=== PATIENT | male | born 1960 | race Caucasian/White ===

== ENCOUNTER 2020-05-05 16:49 | Inpatient (IN) | payer OTHER, SELFPAY ==
[~2020-05-05] VITALS: Ht 167.6 cm; Wt 70.9 kg
[2020-05-05 17:10] VITALS: Ht 167.6 cm; Wt 70.9 kg
--- NOTE | 2020-05-05 17:15 | NUR ---
DR RAMSAY AT THE BEDSIDE FOR MSE TO PT.
--- NOTE | 2020-05-05 17:21 | NUR ---
PT REPORTED HE IS UNABLE TO PRODUCE URINE. DR SOBIA LORENZANA.
--- NOTE | 2020-05-05 17:52 | NUR ---
PT IS FRI- FRI- FRIDAY DIALYSIS. LAST DIALYSIS FRIDAY.
[2020-05-05 17:54] LABS: PLATELET COUNT 197 x10^3mcL (130-400); RED CELL DISTRIBUTION WIDTH 14.3 % (11.5-14.5)
[2020-05-05 17:55] LABS: BASOPHIL % 0 % (0-2)
--- NOTE | 2020-05-05 18:10 | NUR ---
IV STARTED WITH SOME DIFFICULTY. LT UPPER ARM = DISLYSIS SHUNT SITE (GOOD THRILL & BRUIT) LT SIDE WEAK S/P CVA PER PT & HX.
[2020-05-05 19:10] LABS: BILIRUBIN TOTAL 0.7 mg/dL (0.20-1.00); CALCIUM 8.6 mg/dL (8.5-10.1); CARBON DIOXIDE 15.3 mmol/L (21-32)
[2020-05-05 19:11] LABS: ALBUMIN 3.3 g/dL (3.4-5.0)
[2020-05-05 19:13] LABS: POTASSIUM SERUM 5.7 mmol/L (3.5-5.1)
[2020-05-05 19:14] LABS: CREATININE SERUM 17.9 mg/dL (0.7-1.3)
[2020-05-05 19:36] LABS: C REACTIVE PROTEIN 18.3 mg/dL (<=0.9)
[2020-05-05 21:03] LABS: MAGNESIUM 2.9 mg/dL (1.8-2.4); PHOSPHOROUS 8.9 mg/dL (2.5-4.9)
--- NOTE | 2020-05-05 21:13 | NUR ---
RECEIVED PT IN A VEDRY WAKENED STATE. STATES HE HAS TO HAVE A BOWEL MOVEMENT. WHEN OFFERED T[facility] BED PIMENTEL HE REFUSED STATING HE DOULD WALK TO THE BATH ROOM. NOTED A PROTHESIS ON THE LEFT FOOT AND PT SEEMED TO WEAK TO AMBULATE TO THE BATHROOM. CALLED FOR A BEDSIDE COMMODE AND HELP TO GET THE PT UP. PT'S POTASSIUM WAS 5.7, ADMINISTERED D50 IVP AND BLOOD SUGAR PRIOR TO ADMINISTRATION WAS 66. 20 MINUTES LATER BLOOD SUGAR WAS 194 AND 10 UNITS OF HUMILIN WAS GIVEN IVP. PT DID HAVE A FOUL SMELLING LIQUID STOOL BROWN IN COLOR. HE WAS ASSISTED BACK TO BED PER TWO ASSISTANTS, AND DEMONSTRATED INCREASE SOB. DR. MOORE ASSESS THE PT AND WROTE ADMISSION ORDERS. PT ASKED IF HIS WAS STILL HERE BUT WHEN SHE WAS CALLED IN THE WAITING ROOM THERE WAS NO ANSWER.
--- NOTE | 2020-05-05 21:23 | NUR ---
ISABELLE DOCUMENTED UNDER JANELLE AT 0860
[2020-05-05 23:26] VITALS: BP 126/76
--- NOTE | 2020-05-05 23:57 | NUR ---
RECEIVED PATIENT FROM ER VIA GUERNEY, AWAKE/ALERT AND ORIENTED, STATED UNABLE TO SLIDE OVER TO BED, MAX ASSIST. REPOSITION IN BED. PLACE TELE # 15 NSR, HR [address]ED. NO C/O PAIN. LLE HAS BRACE ON. IV TO RW INTACT AND PATENT. ORIENTED TO CALL LIGHT. MRSA/COVID SWAB DONE. UPDATE DONTRELL, PT'S CONDITION AND POC. CARE ENDORSE TO ALLISON JENKINS.
--- NOTE | 2020-05-06 00:38 | NUR ---
REPORT RECEIVED FROM ADMITING NURSE DEAN MOHR RESTING COMFORTABLY IN BED, BREATHING EVEN AND UNLABORED ON 2L NC. NO ACUTE DISTRESS NOTED. SAFETY PRECAUTIONS IN PLACE. CALL LIGHT WITHING REACH. WILL CONT TO MONITOR.
--- NOTE | 2020-05-06 02:06 | NUR ---
0135 PT BS 51, REPEAT AND STILL 59. PT AWAKE AND ALERT, DENIES ANY DIZZINESS. D50 GIVEN PER DEC. 0150 BS RECHECKED, CURRENT BS 170, PT RESTING COMFORTABLY IN BED, NO ACUTE DISTRESS NOTED. WILL CONT TO MONITOR.
--- NOTE | 2020-05-06 02:10 | NUR ---
VANCO CANNOT BE VERIFIED BY OUT SIDE PHARMACY. DR ORDONEZ MADE AWARE, RN RECCOMENDED TO PUT THE ORDER WITH EXACT DOSE, PER DR ORDONEZ WE WILL JUST WAIT UNITL TOMORROW FOR OUR PHARMACY TO VERIFY IT. OKAY NOT TO START MED AT THE SCHEDULE TIME.
--- NOTE | 2020-05-06 05:59 | NUR ---
PT SLEPT AT INTERVALS THROUGHOUT THE NIGHT, BREATHING EVEN AND UNLABORED ON 2L NC. PT HAD HD TODAY WITH 1L OUTPUT. PT TOLERATED WELL. NO ACUTE DISTRESS NOTED. ALL NEEDS ASSESSED AND ATTENDED TO. DR MCNAMARA MADE AWARE OF PT HYPOGLYCEMIC EPISODE. NO ORDERS RECEIVED. PT RESTING COMFORTABLY. SAFETY PRECAUTIONS IN PLACE. CALL LIGHT WITHING REACH. WILL CONT TO MONITOR AND ENDORSE CARE TO AM NURSE.
[2020-05-06 06:04] VITALS: BP 90/78
--- NOTE | 2020-05-06 08:10 | NUR ---
RECEIVED PT FROM PM NURSE. PT IS AWAKE AND RESTING COMFORTABLY IN BED AT THIS TIME. NO FACIAL DISTRESS OR SOB NOTED. PT IS A/OX4. ABLE TO MAKE NEEDS KNOWN. FINE CRACKLES NOTED TO BILATERAL LUNG BEYER. BREATHING E/U ON NC 2L. TELE #15. NSR. DENIES CP/PRESSURE. PULSES EVEN AND PALPABLE. NO EDEMA NOTED. NORMACTIVE BS X4. ABD SOFT AND ROUND. DENIES N/V/D. ANURIC. HD PT. AV SHUNT NOTED TO ANGELIKA. THRILL/BRUIT PRESENT. PT HAS LEFT SIDED WEAKNESS. REQUIRES MAX ASSIST. WHEELCHAIR BASELINE. SKIN INTACT. BRACE NOTED TO LLE. NO C/O PAIN AT THIS TIME. IV TO RW. SL. INTACT. WNL FLUSHES WITH NO DIFFICULTY. BED AT THE LOWEST POSITION. CALL LIGHT WITHIN REACH. DROPLET PRECAUTONS OBSERVED AT ALL TIMES. WILL CONTINUE TO MONITOR.
[2020-05-06 08:55] VITALS: BP 147/70
[2020-05-06 09:46] LABS: PLATELET COUNT 184 x10^3mcL (130-400)
[2020-05-06 09:54] LABS: BASOPHIL % 0 % (0-2); RED CELL DISTRIBUTION WIDTH 14.6 % (11.5-14.5)
[2020-05-06 10:15] LABS: CALCIUM 8.4 mg/dL (8.5-10.1); CARBON DIOXIDE 26.1 mmol/L (21-32); MAGNESIUM 2.2 mg/dL (1.8-2.4); PHOSPHOROUS 5.5 mg/dL (2.5-4.9); POTASSIUM SERUM 3.9 mmol/L (3.5-5.1)
[2020-05-06 10:19] LABS: CREATININE SERUM 11.1 mg/dL (0.7-1.3)
[2020-05-06 10:42] LABS: C REACTIVE PROTEIN 22.4 mg/dL (<=0.9)
[2020-05-06 10:56] LABS: ERYTHROCYTE SED RATE 83 mm/hr (0-20)
[2020-05-06 17:22] VITALS: BP 107/61
--- NOTE | 2020-05-06 18:14 | NUR ---
P.T. NOTES P.T. EVAL COMPLETED; REFER TO EVAL FOR DETAILS; NON AMBULATORY, PERSONAL W/C & L AFO IN ROOM; L SIDED WEAKNESS; TRIAL W/ P.T.; O2 SAT ROOM AIR=80s, 2L=94%
--- NOTE | 2020-05-06 19:34 | NUR ---
ENDORSED CARE TO PM NURSE FOR CONTINUITY OF CARE. ALL QUESTIONS/CONCERNS ANSWERED.
--- NOTE | 2020-05-06 20:20 | NUR ---
RECEIVED PT FROM AM NURSE. PT AAAOX4, ABLE TO FOLLOW COMMANDS AND MAKE NEEDS KNOWN. TELE#15 READING SR, PT DENIES CP/PRESSURE AT THIS TIME. PALPABLE PULSES TO ALL EXTREMETIES. NO EDEMA NOTED. FINE CRACKLES TO BASES, BREATHING EVEN AND UNLABORED ON 4L NC. NO SOB NOTED. O2 SAT 92%. ABD SOFT AND NONDISTENDED, ACTIVE BS X4 QUAD. DENIES N/V, PT STATES HAVING LOOSE STOOLS. PT ON HD M/W/F. LAST HD 05/06N WITH 1L OUT. AV SHUNT TO LUE WITH GOOD THRILL AND BRUIT. LEFT SIDED WEAKNESS, WC BOUND. IV TO RW PATENT AND INTACT. SITE WNL. BED AT LOWEST SETTING. SIDE RAILS X2 UP. CALL LIGHT WITHING REACH. PT PUI CVD, DROPLET PRECAUTIONS IN PLACE. WILL CON TO MONITOR.
[2020-05-06 20:30] VITALS: BP 122/77; BP 96/54
--- NOTE | 2020-05-06 23:54 | NUR ---
PT RESTING COMFORTABLY IN BED, BREATHING EVEN AND UNLABORED ON 4L NC. NO SOB NOTED. PT EASILY AROUSABLE TO VERBALS STIMULI. NO ACUTE DISTRESS NOTED. SAFETY PRECAUTIONS IN PLACE. CALL LIGHT WITHING REACH. WILL CONT TO MONITOR.
--- NOTE | 2020-05-07 04:31 | NUR ---
PT C/O 03/22 ABD PAIN, NO ALLEVIATING FACTORS. MEDICATED WITH PRN NORCO PER DEC. NO ACUTE DISTRESS NOTED. WILL CONT TO MONITOR.
[2020-05-07 06:15] VITALS: BP 122/84
--- NOTE | 2020-05-07 06:16 | NUR ---
PT SLEPT AT INTERVALS THROUGHOUT THE NIGHT, BREATHING EVEN AND UNLABORED ON 4L NC. O2 SAT 95%. NO SIGNIFICANT CHANGE DURING SHIFT. PT CONT HAVING DIARRHEA. ALL NEEDS ASSESSED AND ATTENDED TO. PT RESTING COMFORTABLY. SAFETY PRECAUTIONS IN PLACE. CALL LIGHT WITHING REACH. WILL CONT TO MONITOR AND ENDORSE CARE TO AM NURSE.
[2020-05-07 06:38] LABS: PLATELET COUNT 192 x10^3mcL (130-400)
--- NOTE | 2020-05-07 06:44 | NUR ---
CALLED NURSE BOWERS THREE TIMES TO INFORM HER ABOUT HD ORDER FOR TODAY BUT NO ANSWER. UNABLE TO LEAVE A MESSAGE. CHARGE NURSE MADE AWARE. WILL CALL HER AGAIN.
[2020-05-07 06:47] LABS: CARBON DIOXIDE 26.2 mmol/L (21-32); MAGNESIUM 2.5 mg/dL (1.8-2.4); PHOSPHOROUS 8.7 mg/dL (2.5-4.9); POTASSIUM SERUM 4.6 mmol/L (3.5-5.1)
[2020-05-07 06:48] LABS: CREATININE SERUM 13.5 mg/dL (0.7-1.3)
[2020-05-07 07:14] LABS: BASOPHIL % 0 % (0-2); RED CELL DISTRIBUTION WIDTH 14.7 % (11.5-14.5)
--- NOTE | 2020-05-07 07:30 | NUR ---
PT IS AAOX4 WITH L SIDED WEAKNESS AND L EYE REMOVED. PT CAN TURN AND REPOSITION SELF AND IS PARTIAL WEIGHT BEARING. USES W/C AT BASELINE. TELE [address] READING NSR. IV CATH TO RW FLUSHED, PATENT, SITE WNL. COVERED WITH CDI DRESSING. AV SHUNT TO ANGELIKA, SITE WNL, BRUIT AND THRILL NOTED. ABDOMEN SOFT, NONTENDER, NONDISTENDED. BOWEL SOUNDS HYPERACTIVE X4 QUADS. DENIES N/V, HAS C/O DIARRHEA. LUNG SOUNDS DIMINISHED BILATERALLY. ON O2 N/C AT 4LPM. NO COUGH OR SOB NOTED. DENIES PAIN. CALL LIGHT WITHIN REACH. BED IN LOWEST POSITION. DROPLET PRECAUTIONS MAINTAINED. FALL PROTOCOL MAINTAINED.
[2020-05-07 08:25] VITALS: BP 140/72
--- NOTE | 2020-05-07 08:40 | NUR ---
LAB REPORTED PT IS POSITIVE FOR COVID.
--- NOTE | 2020-05-07 09:42 | NUR ---
STEVO MAYFIELD NP MADE AWARE PT IS POSITIVE COVID.
--- NOTE | 2020-05-07 12:35 | NUR ---
BLOOD SUGAR 248, 6 UNITS REG INSULIN GIVEN PER RISS. 02 N/C IN PLACE. NO RESP DISTRESS NOTED. DENIES PAIN. WILL CONTINUE TO MONITOR.
[2020-05-07 13:01] VITALS: BP 145/73
--- NOTE | 2020-05-07 14:50 | NUR ---
IRLANDA HUTSON INITIATED. RESP EVEN AND UNLABORED. PT TAUGHT HOW TO PLACE HIS N/C IF SHOULD BECOME DISLODGED. PT DEMONSTRATED UNDERSTANDING. PT DENIES PAIN. CALL LIGHT WITHIN REACH.
--- NOTE | 2020-05-07 15:15 | NUR ---
PT RECEIVING HEMODIALYSIS AT THIS TIME.
--- NOTE | 2020-05-07 16:08 | NUR ---
REPORTED TO DR. YEH THAT PT HAS CCHO DIET BUT RENAL DIET NOT ADDED. RECEIVED ORDER TO ADD RENAL DIET. REPORTED THAT PT'S PHOS = 8.6, MAG= 2.5, BUN =100.0 AND HCT = 40. PT RECEIVING DIAYLYSIS AT THIS TIME. NO OTHER ORDERS GIVEN.
[2020-05-07 16:27] VITALS: BP 110/70
--- NOTE | 2020-05-07 16:58 | NUR ---
BLOOD SUGAR 286, 9 UNITS REG INSULIN GIVEN PER RISS. PT STILL RECEIVING HEMODIALYSIS. PT O2 SAT TRENDING BETWEEN 95-100%. TITRATED PT DOWN TO 3LPM. WILL CONTINUE TO MONITOR.
--- NOTE | 2020-05-07 17:06 | NUR ---
REPORTED TO DR. MONTANO THAT PT HAS PERSISTENT DRY COUGH. WOULD COUGH MEDICATION BE INDICATED. DR. MONTANO STATED, "NO, NO COUGH MEDICATION.". PT MADE AWARE.
--- NOTE | 2020-05-07 17:07 | NUR ---
REPORTED TO DR. MONTANO THAT PT HAS PERSISTENT DRY COUGH. WOULD COUGH MEDICATION BE INDICATED. DR. MONTANO STATED, "NO, NO COUGH MEDICATION.". PT MADE AWARE.
[2020-05-07 19:25] VITALS: BP 131/71
--- NOTE | 2020-05-07 19:31 | NUR ---
ENDORSED PT TO URBA JENKINS, ALL QUESTIONS AND CONCERNS ADDRESSED.
--- NOTE | 2020-05-07 19:32 | NUR ---
RECEIVED PT AWAKE ALERT AND VERBALLY RESPONSIVE.BREATHING EASY AND NON-LABORED.O2 @ 5L/MIN VIA N/C.O2 SAT @ 94%.DENIES SOB/DIFFICULTY BREATHING.NO COUGHING/CONGESTION NOTED.DENIES CHESTPAIN.BP 131/71 MMHG,HR 81.ANGELIKA SHUNT WITH GOOD BRUIT/THRILLS.ANURIC.ON DROPLET PRECAUTION FOR COVID+.WILL OBSERVE PROTOCOL.WILL CONTINUE TO MONITOR.
--- NOTE | 2020-05-08 04:36 | NUR ---
PT SLEPT WELL ALL NIGHT.BREATHING EASY AND NON-LABORED,NO COUGHING/CONGESTION NOTED.TOLERATED 02 @ 5L/MIN VIA N/C.NO ASE NOTED FROM ZOSYN AND ZITHROMAX IV ATB.ASSISTED TO BSC NEEDED.BM X2 TO LOOSE STOOL.ALL NEEDS MET.ON DROPLET PRECAUTION FOR COVID+.GOODHANDWASHING TECHNIQUE OBSERVED.WILL CONTINUE TO MONITOR.
[2020-05-08 05:39] VITALS: BP 157/65
[2020-05-08 06:47] LABS: PLATELET COUNT 205 x10^3mcL (130-400); RED CELL DISTRIBUTION WIDTH 14.1 % (11.5-14.5)
--- NOTE | 2020-05-08 07:15 | NUR ---
RECEIVED PT IN BED AWAKE, ALERT, ABLE TO MAKE NEEDS KNOWN. ON DROPLET ISOLATION FOR COVID19. ON 5L VIA NC AT 97%SAT. NO ACUTE RESPIRATORY DISTRESS. ON TELE 15. IV SITE TO RIGHT WRIST SALINE LOCK. DENIES PAIN OR DISCOMFORT AT THIS TIME. BED IN LOWEST POSITION. CALL LIGHT WITHIN REACH. WILL CONTINUE TO MONITOR.
[2020-05-08 07:22] LABS: C REACTIVE PROTEIN 11.7 mg/dL (<=0.9); CALCIUM 8.2 mg/dL (8.5-10.1); CARBON DIOXIDE 25.6 mmol/L (21-32); MAGNESIUM 2.2 mg/dL (1.8-2.4); POTASSIUM SERUM 3.1 mmol/L (3.5-5.1)
[2020-05-08 07:24] LABS: CREATININE SERUM 9.6 mg/dL (0.7-1.3)
[2020-05-08 07:29] LABS: BASOPHIL % 0 % (0-2)
[2020-05-08 08:00] VITALS: BP 137/77
[2020-05-08 12:00] VITALS: BP 150/83
[2020-05-08 16:52] VITALS: BP 127/67
--- NOTE | 2020-05-08 17:00 | NUR ---
PATIENT IV SITE TO RIGHT WRIST NOTED WITH BLOOD LEAKING AROUND THE SITE, NO BLOOD RETURN NOTED. I/V SITE D/C FROM RIGHT WRIST, CATHETER INTACT UPON REMOVAL. COVERED WITH DRY DRESSING AND APPLIED PRESSURE, NO BLEEDING NOTED.
--- NOTE | 2020-05-08 17:40 | NUR ---
ATTEMPTED TO START AN IV LINE X2. UNABLE TO SUCCESSFULY START ONE, RESOURCE NURSE MADE AWARE.
--- NOTE | 2020-05-08 18:59 | NUR ---
PT IN BED AWAKE, ALERT, ABLE TO MAKE NEEDS KNOWN. ON DROPLET ISOLATION FOR COVID19. CONTINUE WITH 5L VIA NC AT 97%SAT. NO ACUTE RESPIRATORY DISTRESS, DENIES SOB. OXYGEN DESAT TO 80'S WHEN REMOVING OXYGEN AND UPON EXERTION. ENCOURAGE TO PRONE AND TO TURN TO SIDE. PATIENT VERBALIZE UNDERSTANDING. ON TELE 15. DENIES PAIN OR DISCOMFORT AT THIS TIME. BED IN LOWEST POSITION. CALL LIGHT WITHIN REACH. WILL ENDORSE CARE TO INCOMING NURSE
--- NOTE | 2020-05-08 20:00 | NUR ---
RECEIVED PT IN BED AWAKE, ALERT,ORIENTED X4. LUNG SOUNDS DIMINISHED. PT IS ON O2 AT 5L VIA N/C. HE HAS NO SOB AT THIS TIME WHILE AT REST. HE IS C/O BACK PAIN 07/22. W/ AV SHUNT TO ANGELIKA. PT HAS NO IV ACCESS AT THIS TIME. WILL TRY TO START IV TONIGHT. CALL LIGHT W/IN REACH.
--- NOTE | 2020-05-08 20:15 | NUR ---
STARTED NEW IV ON THE RT WRIST G 24.
--- NOTE | 2020-05-08 20:22 | NUR ---
PT MEDICATED W/ NORCO 5/325 MG PO FOR C/O BACK PAIN 07/22.
[2020-05-08 21:34] VITALS: BP 107/53
--- NOTE | 2020-05-08 22:30 | NUR ---
INFORMED DR. WOOD REGARDING ACCUCHECK BLOOD SUGAR OF 416/462 (REPEATED) AND THAT INSULIN COVERAGE OF 21 UNITS WAS GIVEN.
--- NOTE | 2020-05-08 23:00 | NUR ---
PT STATED THAT NORCO DID NOT HELP WITH HIS BACK PAIN. INFORMED RESIDENT AND ORDER WAS GIVEN. PT WAS THEN MEDICATED W/ ULTRAM 50 MG PO FOR BACK PAIN 07/22.
--- NOTE | 2020-05-09 01:25 | NUR ---
PT APPEARS TO BE SLEEPING COMFORTABLY AT THIS TIME.
--- NOTE | 2020-05-09 05:19 | NUR ---
PT STILL ASLEEP QUIETLY AT THIS TIME. HE WAS MEDICATED FOR BACK PAIN X2 AND FOR N/V X1. NO EPISODE OF RESP. DISTRESS NOTED. HL TO RT WRIST INTACT. PT SCHEDULED FOR HEMODIALYSIS TODAY. ALL NEEDS ATTENDED TO.
[2020-05-09 06:05] VITALS: BP 136/70
[2020-05-09 08:08] LABS: PLATELET COUNT 217 x10^3mcL (130-400)
[2020-05-09 08:17] LABS: C REACTIVE PROTEIN 7.2 mg/dL (<=0.9); CALCIUM 8.6 mg/dL (8.5-10.1); CARBON DIOXIDE 27.5 mmol/L (21-32); POTASSIUM SERUM 3.8 mmol/L (3.5-5.1)
[2020-05-09 08:23] LABS: CREATININE SERUM 11.8 mg/dL (0.7-1.3)
[2020-05-09 08:28] LABS: BASOPHIL % 0 % (0-2)
[2020-05-09 09:19] VITALS: BP 142/75
--- NOTE | 2020-05-09 10:11 | NUR ---
RECEIVED REPORT FROM COMMANDING OFFICER HOMIC[employer] SQU[employer] RN. PATIENT A&OX4, RESTING IN BED, REMAINS ON NC. CRITICAL LAB VALUE FOR CREATININE AT 11.8 AND BUN AT 96.0, DR. MORGAN AWARE. PLAN FOR HD TODAY. WILL CONTINUE TO MONITOR.
[2020-05-09 13:47] VITALS: BP 124/64
--- NOTE | 2020-05-09 14:16 | NUR ---
P.T. NOTE Pt UNDERGOING DIALYSIS AT THIS TIME. PHYSICAL THERAPY TX ON HOLD FOR NEXT SCHEDULED TX DATE.
--- NOTE | 2020-05-09 14:21 | NUR ---
PATIENT A&OX4, LETHARGIC, FAMILY UPDATED PER PATIENT REQUEST WITH PERMISSION. PATIENT REMAINS ON 5L NC WITH SATS 90-94%. HD COMPLETED. NSR ON THE MONITOR WTIH OCCASIONAL PVCS. WILL CONTINUE TO MONITOR.
--- NOTE | 2020-05-09 17:32 | NUR ---
PATIENT A&OX4, 5L NC WITH SATS BETWEEN 91-95%, NSR WITH OCCASIONAL PVCS ON THE TELE MONITOR. PATIENT IS ANURIC, HD DONE TODAY VIA LEFT ARM AV FISTULA. PATIENT VERY LETHARGIC THIS SHIFT. BM X 1 THIS SHIFT. IV ABX INFUSED PER ORDER. ACCUCHECKS ELEVATED, INSULIN COVERAGE PROVIDED PER SLIDING SCALE ORDER. UPDATED FAMILY ON PATIENT STATUS. PATIENT VERY WEAK REQUIRING TWO PEOPLE TO GET OOB TO BSC. ALL NEEDS AND CONCERNS ADDRESSED. CALL LIGHT AND BEDSIDE TABLE WITHIN REACH. NEEDS ATTENDED.
[2020-05-09 17:59] VITALS: BP 104/60
--- NOTE | 2020-05-09 19:30 | NUR ---
RECEIVED PT IN BED ASLEEP BUT EASILY AROUSABLE. HE IS ORIENTED X4. LUNG SOUNDS DIMINISHED. ON O2 AT 5L N/C. HE HAS NO SOB WHILE AT REST. HE HAS NO C/O PAIN. W/ HL TO RT WRIST INTACT. CALL LIGHT W/IN REACH.
[2020-05-09 21:29] VITALS: BP 117/53
--- NOTE | 2020-05-09 22:25 | NUR ---
PT CALM AND APPEARS TO BE SLEEPING COMFORTABLY. HE IS EASILY AROUSABLE.
--- NOTE | 2020-05-09 23:54 | NUR ---
PT C/O BACK PAIN 05/22. NORCO 5/325 MG PO GIVEN.
--- NOTE | 2020-05-10 02:12 | NUR ---
PT ASLEEP COMFORTABLY AND SATTING 100%.
[2020-05-10 05:46] VITALS: BP 110/52
--- NOTE | 2020-05-10 05:56 | NUR ---
IV TO RT WRIST NOT PATENT. IV REMOVED. STARTED NEW IV ON THE SAME HAND (OTHER SIDE OF RT WRIST) G 22. PT TOLERATED PROCEDURE WELL.
--- NOTE | 2020-05-10 06:03 | NUR ---
PT HAD A QUIET NIGHT. NO EPISODE OF RESP. DISTRESS. HE REMAINS ALERT AND ORIENTED X4. HE WAS MEDICATED FOR BACK PAIN X1. PT REMAINS ON N/C AT 5L O2. ALL NEEDS ATTENDED TO.
[2020-05-10 06:36] LABS: BASOPHIL % 0.3 % (0-2); PLATELET COUNT 206 x10^3mcL (130-400); RED CELL DISTRIBUTION WIDTH 14.5 % (11.5-14.5)
[2020-05-10 06:58] LABS: C REACTIVE PROTEIN 5.1 mg/dL (<=0.9); MAGNESIUM 2.1 mg/dL (1.8-2.4); PHOSPHOROUS 7.5 mg/dL (2.5-4.9); POTASSIUM SERUM 3.8 mmol/L (3.5-5.1)
[2020-05-10 06:59] LABS: CREATININE SERUM 9.4 mg/dL (0.7-1.3)
[2020-05-10 08:39] VITALS: BP 91/55
--- NOTE | 2020-05-10 09:00 | NUR ---
RECEIVED IN NO ACUTE DISTRESS, AWAKE AND ALERT. ON O2 5L N/C SATS 93%. MILD SOB NOTED WITH ACTIVITIES. VS WNL. HL PATENT. CALL LIGHT WITHIN REACH.
[2020-05-10 12:32] VITALS: BP 119/65
--- NOTE | 2020-05-10 14:12 | NUR ---
HEPARIN DRIP STARTED PER ORDER, SRATED AT 800UNITS/HR, PTT BASELINE IS 33.9 AND PTT ORDERED FOR 2200.
--- NOTE | 2020-05-10 16:11 | NUR ---
CALLED DR. RIOS AND VERIFIED ORDER FOR PLASMA. PER DR. RIOS PT NEEDS ONLY TWO UNITS TRANSFUSED. ELIZABETH IN THE LAB MADE AWARE.
[2020-05-10 16:47] VITALS: BP 110/61
--- NOTE | 2020-05-10 19:27 | NUR ---
PT REMAINS IN NO ACUTE DISTRESS, RESTING IN BED. NO C/O PAIN OR DISCOMFORT AT THIS TIME. NO CHANGES IN VS. HEPARIN DRIP INFUSING WELL AND SITE CLEAR. NO ACTIVE BLEEDING NOTED. CALL LIGHT WITHIN REACH. WILL BE ENDORSED TO INCOMING SHIFT.
--- NOTE | 2020-05-10 20:12 | NUR ---
RECIEVED PT FROM PREVIOUS SHIFT NURSE. PT RESTING COMFORTABLY IN BED W/ HOB ELEVATED, EASILY AROUSABLE, AOX4, ABLE TO FOLLOW COMMANDS, DENIES SILVERMAN, N/V, DIZZINESS, OR PAIN, NO FACIAL DROOPING NOTED, AND L EYE PROSTHESIS NOTED AND POOR VISION BILATERALLY, AND CALM AND COOPERATIVE WITH CARE. RR EVEN AND UNLABORED ON 5L/NC, CHEST RISING EQUALLY, DENIES SOB OR DIFFICULTY BREATHING. TELE #15 NSR, CONT PULSE OX O2:98%, DENIES CHEST PAIN OR PRESSURE. IV RW AND RFA WNL, NO ERYTHEMA, EDEMA, OR DRAINAGE NOTED AND HEPARIN RUNNING AT 800UNITS/HR, 8ML/HR. ON RW, PT TOLERATING WELL. AV SHUNT NOTED TO ANGELIKA THRILL AND BRUIT NOTED. PT ON DROPLET/CONTACT ISOLATION FOR COVID-19(+). BED IN LOWEST POSITION, SIDE RAILS UP X2, AND CALL LIGHT WITHIN REACH. WILL CONTINUE TO MONITOR.
--- NOTE | 2020-05-10 20:13 | NUR ---
RECIEVED PT FROM PREVIOUS SHIFT NURSE. PT RESTING COMFORTABLY IN BED W/ HOB ELEVATED, EASILY AROUSABLE, AOX4, ABLE TO FOLLOW COMMANDS, DENIES SILVERMAN, N/V, DIZZINESS, OR PAIN, NO FACIAL DROOPING NOTED, AND L EYE PROSTHESIS NOTED AND POOR VISION BILATERALLY, AND CALM AND COOPERATIVE WITH CARE. RR EVEN AND UNLABORED ON 5L/NC, CHEST RISING EQUALLY, DENIES SOB OR DIFFICULTY BREATHING. TELE #15 NSR, CONT PULSE OX O2:98%, DENIES CHEST PAIN OR PRESSURE. IV RW AND RFA WNL, NO ERYTHEMA, EDEMA, OR DRAINAGE NOTED AND HEPARIN RUNNING AT 800ML/HR ON RW, PT TOLERATING WELL. AV SHUNT NOTED TO ANGELIKA THRILL AND BRUIT NOTED. PT ON DROPLET/CONTACT ISOLATION FOR COVID-19(+). BED IN LOWEST POSITION, SIDE RAILS UP X2, AND CALL LIGHT WITHIN REACH. WILL CONTINUE TO MONITOR.
--- NOTE | 2020-05-10 20:16 | NUR ---
CONSENT FOR PLASMA SIGNED.
[2020-05-10 20:39] VITALS: BP 132/64
--- NOTE | 2020-05-10 21:38 | NUR ---
CRITICAL LAB PTT:122, HEPARIN DRIP HELD PER PROTOCOL.
--- NOTE | 2020-05-11 00:05 | NUR ---
PT RESTING COMFORTABLY IN BED, EASILY AROUSABLE. RR EVEN AND UNLABORED ON 5L/NC, CHEST RISING EQUALLY. TELE #15 NSR, CONT PULSE OX O2:97%. NO SIGNS OF ACUTE CHANGE OR DISTRESS NOTED. IV RW AND RFA WNL, HEPARIN DRIP ON HOLD DUE TO HIGH PTT, AWAITING NEW PTT RESULTS. BED IN LOWEST POSITION, SIDE RAILS UP X2, AND CALL LIGHT [facility] REACH. WILL CONTINUE TO MONITOR.
--- NOTE | 2020-05-11 03:31 | NUR ---
CRITICAL LAB PTT: 52.4, NO CHANGE. WILL RESUME HEPARIN DRIP AT 8000UNITS/HR, 8ML/HR. WILL CONTINUE TO MONITOR.
[2020-05-11 04:31] VITALS: BP 154/76
--- NOTE | 2020-05-11 06:10 | NUR ---
O2 SATURATION MAINTAINING AROUND 85-87% ON 6L/NC, SWITCHED TO 6L SIMPLE MASK, O2 SATURATION 92%. WILL CONTINUE TO MONITOR.
--- NOTE | 2020-05-11 06:21 | NUR ---
PT RESTING COMFORTABLY IN BED W/ HOB ELEVATED, EASILY AROUSABLE. RR EVEN AND UNLABORED ON 6L SIMPLE MASK, DENIES SOB OR DIFFICULTY BREATHING, CHEST RISING EQUALLY. TELE #15 NSR, CONT PULSE OX 94%. NO SIGNS OF ACUTE CHANGE OR DISTRESS NOTED THROUGH OUT THE SHIFT. ALL NEEDS MET THROUGHOUT THE SHIFT. IV RW AND RFA WNL, HEPARIN DRIP RUNNING AT 800UNIT/HR, 8ML/HR. L SIDED WEAKNESS NOTED, AND WHEELCHAIR AT BED SIDE. BED IN LOWEST POSITION, SIDE RAILS UP X2, AND CALL LIGHT WITHIN REACH. WILL ENDORSE CARE TO ONCOMING SHIFT NURSE, AND WILL CONTINUE TO MONITOR.
[2020-05-11 06:28] LABS: PLATELET COUNT 263 x10^3mcL (130-400); RED CELL DISTRIBUTION WIDTH 14.5 % (11.5-14.5)
[2020-05-11 06:37] LABS: BASOPHIL % 0 % (0-2)
[2020-05-11 06:57] LABS: C REACTIVE PROTEIN 6.1 mg/dL (<=0.9); CALCIUM 8.2 mg/dL (8.5-10.1); CARBON DIOXIDE 30.6 mmol/L (21-32); MAGNESIUM 2.2 mg/dL (1.8-2.4); POTASSIUM SERUM 4.4 mmol/L (3.5-5.1)
[2020-05-11 07:07] LABS: CREATININE SERUM 10.9 mg/dL (0.7-1.3)
--- NOTE | 2020-05-11 08:00 | NUR ---
RECEIVED WITH O2 6L VIA SIMPLE MASKS SATS 88%. MILD SOB NOTED WITH ACTIVITIES BUT NO ACUTE DISTRESS. RECEIVED AWAKE, ALERT AND ORIENTED. HEPARIN DRIP AT 800U/HR AND SITE CLEAR. NO C/O PAIN OR DISCOMFORT AT THIS TIME. VS WNL. CALL LIGHT WITHIN REACH. WILL CONTINUE WITH PLAN OF CARE.
[2020-05-11 08:50] VITALS: BP 126/63
[2020-05-11 12:20] VITALS: BP 131/48
--- NOTE | 2020-05-11 13:30 | NUR ---
PTT 117.6, HEPARIN DRIP HELD AND PTT ORDERED FOR 1500. PT IN NO ACUTE DISTRESS. RESTING AT THIS TIME. NO ACTIVE BLEEDING NOTED.
[2020-05-11 14:50] VITALS: BP 114/56
--- NOTE | 2020-05-11 15:36 | NUR ---
1. Continue CCHO, K 2, protein 100g, Low phosphorus 2. RD will modify pt's diet texture for better tolerance
--- NOTE | 2020-05-11 15:36 | NUR ---
Initial Nutrition Assessment: 222B LYNSEY CASTREJON 60M MR Dx: viral PNA, COVID r/o Chronic renal failure PMHx: DM, Stroke, ESRD on HD (MWF), HTN PSHx: open heart sx, left eye enucleation Labs: (05/11) WBC 16.2H, H/H 8.7/27L, Na 134L, CL 91L, BUN 87H, Cr 10.9H, BG 170H, POC BG 173H, Phos 8H, CRP 6.1H, (05/05) A1C 6.5H, Ferritin 2260H, AST 41H, ALT 14L, Troponin 0.112H, Alb 3.3L, Triglyceride 192H Meds: Colace, Decadron, Lantus, Lipitor, Norvasc, Zithromax, Zosyn, Zyloprim, Heparin sodium PRN meds: D50%, Hep-lock, Humulin, Hydralazine, Mucinex, [place], Ventolin, Zofran Diet: CCHO, K 2, protein 100g, Low phosphorus PO intake since admission: 60-100% x 8 meals with average PO intake of 76% Ht: 167.64cm/66in Wt: 70.931kg/156lbs BMI: 25.2 Bed scale: not accessible IBW: 64.55kg/142lbs %IBW: 109.89% UBW: unknown Age: 60 Food Allergies: unknown Edema: none noted Last BM: 05/10 loose stool per RN Skin: skin intact Dany: 16 Per H and P (05/05) Patient is a 60-year-old male with pmhx of HTN, DM, stroke, ESRD on dialysis MWF presents to ED for generalized weakness, fever, cough, SOB and diarrhea. He has been having 3-4 episodes of loose diarrhea every day. His weakness is progressively getting worse. He has mild non productive dry cough. He was supposed to get dialysis on Friday but missed it because of his illness. Patient has a history of stroke from several years ago and he has left sided weakness. He can ambulate but uses wheelchair to get around. 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 He currently lives with his in [place]. He doesn't require supplemental oxygen. Pt was admitted with dx: acute hypoxic respiratory failure, ESRD on HD, Diarrhea C.Diff r/o, DM, HTN, Hyponatremia, Hyperkalemia, h/o BPH RD Note (05/11) Pt was in isolation d/t COVID. Per pt's primary RN, pt had loose stool yesterday. Pt had fair appetite and finished 70-75% of his breakfast today. Pt did not have trouble chewing/swallowing, but pt's RN reported that pt was on oxygen mask, and it might be beneficial for pt to have soft diet. Pt had average PO intake of 76% since admission. With current diet, pt approximately received 1206kcal and 60g protein meeting 62% of estimated kcal needs and 77% of estimated protein needs. Problem with: N/V/D/C: loose stool yesterday per RN Problems with: Chewing: Swallowing: none per RN Current appetite: 70-75% today per RN; av% Recent wt change: unknown %wt change: unknown Height: unknown Vitamin/Supplement use: unknown Special diet at home: unknown Physical activity: unknown Nutrition education given (specify specific nutrition education and handout given): Written education on DM and Renal diet were provided to pt via pt's RN. Food-drug interactions? Education given? n/a Estimated Nutritional Needs Based on ideal body weight (65kg) Energy: 1961-0658 kcal/day (30-35 kcal/kg for ESRD on HD) Protein: 78-91 g/day (1.2-1.4 g/kg for ESRD on HD) Fluid: 9251-8713 mL/day (1 mL/kcal) Nutrition Diagnosis: 1. Increased energy and protein needs r/t increased energy and protein expenditure a/e/b pt has ESRD on HD. 2. Altered nutrition related lab value r/t endocrine and renal dysfunction a/e/b pt decreased H/H 8.7/27L, elevated BUN 87H, Cr 10.9H, BG 170, POC glucose 173H, phosphorus 8H on 05/05. Intervention 1. Continue CCHO, K 2, protein 100g, Low phosphorus 2. RD will modify pt's diet texture for better tolerance Monitor/Evaluate Goal: PO intake at least 75% of estimated needs Monitor: PO intake, Labs, GI function, Body weight F/U in 2-3 days as high risk 05/13-
--- NOTE | 2020-05-11 15:56 | NUR ---
PTT 61.3,HEPARIN DRIP RESUMED AT 700UINTS/HR AND PTT ORDERED FOR 2200.
--- NOTE | 2020-05-11 17:22 | NUR ---
HEMODIALYSIS IN PROGRESS, PT TOLERATING FAIRLY. C/O BACK ACHE AND LEG CRAMPS. MEDICATED WITH NORCO.
--- NOTE | 2020-05-11 19:38 | NUR ---
RECIEVED PT FROM PREVIOUS SHIFT NURSE. PT RESTING COMFORTABLY IN BED W/HOB ELEVATED S/P HEMODIALYSIS, AOX4, ABLE TO FOLLOW COMMANDS, DENIES SILVERMAN, N/V, DIZZINESS, OR PAIN AT THE MOMENT. RR EVEN AND UNLABORED ON 6L SIMPLE MASK, DENIES SOB OR DIFFICULTY BREATHING. TELE #15 NSR, CONT PULSE OX O2: 97%, DENIES CHEST PAIN OR PRESSURE. NO SIGNS OF ACUTE CHANGE OR DISTRESS NOTED. IV NOTED TO RA AND RW WNL, HEPARIN DRIP RUNNING AT 700 UNITS/HR AND 7ML/HR, PT TOLERATING WELL, BOTH IV SITES WNL, NO ERYTHEMA, EDEMA, OR DRAINAGE NOTED. L SIDED WEAKNESS NOTED AND WHEELCHAIR AT BEDSIDE. PT MAINTAINED ON DROPLET/CONTACT ISOLATION FOR COVID-19 (+). BED IN LOWEST POSITION, SIDE RAILS UP X2, AND CALL LIGHT WITHIN REACH. WILL CONTINUE TO MONITOR.
--- NOTE | 2020-05-11 19:48 | NUR ---
AV SHUNT NOTED TO ANGELIKA, DRESSING CDI, AND THRILL AND BRUIT NOTED.
[2020-05-11 20:40] VITALS: BP 136/54
--- NOTE | 2020-05-11 21:19 | NUR ---
CALLED BLOOD BANK REGARDING CONVALESCENT PLASMA FOR TRANSFUSION. ACCORDING TO BLOOD BANK, CONVALESCENT PLASMA NOT AVAILABLE YET. WILL CONTINUE TO MONITOR.
--- NOTE | 2020-05-12 00:44 | NUR ---
CRITICAL LAB PTT 69.6. DECREASED HEPARIN DRIP BY 100UNITS/HR, CURRENT HEPARIN DRIP 600UNITS/HR, 6ML/HR. WILL ORDER PTT REDRAW IN 6 HRS. WILL CONITNUE TO MONITOR.
--- NOTE | 2020-05-12 01:32 | NUR ---
PT RESTING COMFORTABLY IN BED, EASILY AROUSABLE. RR EVEN AND UNLABORED ON 6L SIMPLE MASK. TELE #15 NSR, O2 97%. NO SIGNS OF ACUTE CHANGE OR DISTRESS NOTED. IV SARKIS AND RW WNL, HEPARIN DRIP RUNNING AT 600UNITS/HR, 6ML/HR. BED IN LOWEST POSITION, SIDE RAILS UP X2, AND CALL LIGHT WITHIN REACH. WILL CONTINUE TO MONITOR.
[2020-05-12 05:35] VITALS: BP 116/65
--- NOTE | 2020-05-12 05:58 | NUR ---
PT COUGHED UP BLOOD TINGED SPUTUM. DR. SPANGLER NOTIFIED, PER DR. ARELLANO THE HEPARIN DRIP.
[2020-05-12 06:31] LABS: PLATELET COUNT 392 x10^3mcL (130-400)
--- NOTE | 2020-05-12 06:37 | NUR ---
PT RESTING COMFORTABLY IN BED W/ HOB ELEVATED, EASILY AROUSABLE. RR EVEN AND UNLABORED ON 7L SIMPLE MASK, CHEST RISING EQUALLY, DENIES SOB OR DIFFICULTY BREATHING. TELE #15 NSR, O2 100%. NO SIGNS OF ACUTE CHANGE OR DISTRESS NOTED. ALL NEEDS MET THROUGHOUT THE SHIFT. BOTH IV WNL, SARKIS AND RW, NO ERYTHEMA, EDEMA, OR DRAINAGE NOTED. ANGELIKA AV SHUNT NOTED, THRILL AND BRUIT NOTED. BED IN LOWEST POSITION, SIDE RAILS UP X2, AND CALL LIGHT WITHIN REACH. WILL CONTINUE TO MONITOR, AND WILL ENDORSE TO ONCOMING SHIFT NURSE.
[2020-05-12 06:46] LABS: C REACTIVE PROTEIN 6.2 mg/dL (<=0.9); CALCIUM 8.3 mg/dL (8.5-10.1); CARBON DIOXIDE 32.5 mmol/L (21-32); PHOSPHOROUS 6.2 mg/dL (2.5-4.9); POTASSIUM SERUM 3.9 mmol/L (3.5-5.1)
[2020-05-12 06:49] LABS: BASOPHIL % 0 % (0-2)
--- NOTE | 2020-05-12 06:50 | NUR ---
CRITICAL LAB WBC: 21.8. DR. GARDUNO PAGED, WAITING CALL BACK
--- NOTE | 2020-05-12 07:25 | NUR ---
RECEIVED PATIENT FROM PM NURSE, ALERT AND ORIENTED X 4, ABLE TO VERBALIZE NEEDS, NO C/O PAIN OR DISCOMFORT AT THIS TIME, LUNG SOUNDS DIMINISHED AT BASES, PULSE OX 93% ON 6LPM O2 VIA MASK, GENERALIZED WEAKNESS, IV IN RW RFA PATENT, ON TELEMTRY CURRENTLY SR 78, DENIES CHEST PAIN, BOWEL SOUNDS ACTIVE, LAST BM 05/10, SKIN INTACT, PEDAL PULSES EQUAL, NO EDEMA NOTED, CONTINET OF BLADDER, ANURIC , ANGELIKA SHUNT BRUIT AND THRILL, ON DROPLET AND CONTACT ISOLATION FOR COVID, PATIENT PLEASANT AND COOPERATIVE.
[2020-05-12 07:47] LABS: CREATININE SERUM 7.8 mg/dL (0.7-1.3)
[2020-05-12 08:41] VITALS: BP 116/71
[2020-05-12 09:33] LABS: ERYTHROCYTE SED RATE 110 mm/hr (0-20)
--- NOTE | 2020-05-12 10:00 | NUR ---
PATIENT C/O SOB, PULSE OX 78% ON 6LPM VIA FACE MASK, INSTRUCTED PATIENT BREATH DEEPLY, PLACED NRB MASK INCREASED O2 TO 12LPM, REPOSITONED PATIENT IN BED FOR COMFORT, PATIENT APPEARS COMFORTABLE AFTER INTERVENTIONS, O2 SAT 96% AT THIS TIME, WILL CONTINUE TO MONITOR PATIENT
[2020-05-12 11:40] VITALS: BP 130/58
--- NOTE | 2020-05-12 12:20 | NUR ---
BLOOD SUGAR 201, 6 UNITS OF REGULAR INSULIN ADMINISTERED
[2020-05-12 16:47] VITALS: BP 108/49
--- NOTE | 2020-05-12 18:30 | NUR ---
PATIENT RESTING COMFORTABLY IN BED, NO C/O OF PAIN OR DISOMFORT AT THIS TIME, WILL ENDORSE CARE TO PM NURSE
--- NOTE | 2020-05-12 19:00 | NUR ---
PATIENT RECIEVED IN BED ALERT AND ORIENTED X4. LUNG SOUNDS DISMINISHED TO BILATERAL LOWER LOBES. SAT 98%. GENERALIZED WEAKNES NOTED. SKIN INTACT. BS+4. PATIENT ANURIC. ESRD. LEFT UPPER ARM SHUNT INTACT. PATIENT COVID POSITIVE. REMAINS DROPLET AND CONTACT ISOLATION. GENERALIZED WEAKNESS NOTED. REQUIRES 1 PERSON ASSISTANCE. CONTINUED ON AUTOMOTIVE WINDOW TINTER #15. SINUS RHYTHM. RESPIRATIONS EVEN AND NONLABORED. ACYANOTIC. BED IN LOW POSITION CALL LIGHT PLACED IN REACH. FALL AND SAFETY PRECAUTIONS MAINTAINED. VSS.
[2020-05-12 21:19] VITALS: BP 151/49
--- NOTE | 2020-05-13 | NUR ---
PATIENT SLEEPING DURING ROUNDING, EASILY AROUSED. ASSISTED WITH REPOSITIONING NEEDED. COVID PRECAUTIONS MAINTAINED. ACYANOTIC, SKIN WARM AND DRY. 02 SAT 95%. REMAIN ANURIC. ASSISTED WITH REPOSITIONING, CALL LIGHT IN REACH. REMAIN SINUS RHYTHM. NO DISTRESS NOTED.
[2020-05-13 05:27] VITALS: BP 139/65
--- NOTE | 2020-05-13 05:30 | NUR ---
PATIENT SLEEPING DURING ROUNDING. NO RESPIRATORY DISTRESS NOTED. ASSISTED WITH REPOSITIONING. FALL AND SAFETY PRECAUTIONS MAINTAINED. CALL LIGHT PLACED WITHIN REACH.
--- NOTE | 2020-05-13 07:15 | NUR ---
RECEIVED PATIENT FROM PM NURSE, ALERT AND ORIENTED X 4, ABLE TO VERBALIZE NEEDS, NO C/O PAIN OR DISCOMFORT AT THIS TIME, LUNG SOUNDS DIMINISHED AT BASES, PULSE OX 93% ON 10LPM O2 VIA NRB, GENERALIZED WEAKNESS, IV IN RW RFA PATENT, ON TELEMTRY CURRENTLY SR 78, DENIES CHEST PAIN, BOWEL SOUNDS ACTIVE, LAST BM 05/12, SKIN INTACT, PEDAL PULSES EQUAL, NO EDEMA NOTED, CONTINET OF BLADDER, ANURIC , ANGELIKA SHUNT BRUIT AND THRILL, ON DROPLET AND CONTACT ISOLATION FOR COVID, PATIENT PLEASANT AND COOPERATIVE.
[2020-05-13 08:33] VITALS: BP 149/34
[2020-05-13 12:30] VITALS: BP 120/35
--- NOTE | 2020-05-13 12:30 | NUR ---
PATIENTS BLOOD SUGAR 160, 3 UNITS OF REGULAR INSULIN ADMINISTERED
--- NOTE | 2020-05-13 13:30 | NUR ---
1. Continue CCHO, K 2, protein 100g, Low phosphorus 2. Recommend assistance with eating meals d/t low oxygen when eating and poor vision
--- NOTE | 2020-05-13 13:30 | NUR ---
Follow up Nutrition Assessment: 222B LYNSEY CASTREJON 60M MR Dx: viral PNA, COVID r/o Chronic renal failure PMHx: DM, Stroke, ESRD on HD (MWF), HTN PSHx: open heart sx, left eye enucleation Labs: WBC 21.2H, H/H 8.2/25L, Na 134L, CL 96L, BUN 64H, Cr 7.8H, PZ527C, Phos 6.2H, A1C 6.5H Meds: Colace, Decadron, Lantus, Lipitor, Norvasc, Zithromax, Zosyn, Zyloprim, Heparin sodium, D50%, Hep-lock, Humulin, Hydralazine, Mucinex, [place], Ventolin, Zofran Diet: CCHO, K 2, protein 100g, Low phosphorus PO intake since admission: 70% (average) Edema: none noted Last BM: 05/12/20 Skin: skin intact Dany: 16 RD note (05/13/2020): per nursing, pt is having a difficult time eating d/t low oxygen. Pt is not tolerating nasal cannula oxygen and is on 5L 02 via NRB, nurse estimated PO intake is about 50% today, poor vision per pt's primary nurse (L eye enucleation), pt's oxygen levels have gotten worse so PO intake has decreased. Per progress note today, pt tested + for COVID-19, per MD note pt is on 10L 02 Estimated Nutritional Needs Based on ideal body weight (65kg) Energy: 3841-4613 kcal/day (30-35 kcal/kg for ESRD on HD) Protein: 78-91 g/day (1.2-1.4 g/kg for ESRD on HD) Fluid: 4009-5399 mL/day (1 mL/kcal) Nutrition Diagnosis: 1. Increased energy and protein needs r/t increased energy and protein expenditure a/e/b pt has ESRD on HD. 2. Altered nutrition related lab value r/t endocrine and renal dysfunction a/e/b pt decreased H/H, elevated BUN/Cr, blood glucose and phosphorus Intervention 1. Continue CCHO, K 2, protein 100g, Low phosphorus 2. Recommend assistance with eating meals d/t low oxygen when eating and poor vision Monitor/Evaluate Goal: PO intake at least 75% of estimated needs (met, ongoing) Monitor: PO intake, Labs, GI function, Body weight F/U in 2-3 days as high risk 05/15-
--- NOTE | 2020-05-13 15:19 | NUR ---
PATIENTS CURRENT O2 SAT 100% ON 10LPM OF OXYGEN VIA NRB, O2 DECREASED TO 8LPM, PATIENT TOLERATED WELL O2 SAT NOW 97%, NO SOB OBSERVED
[2020-05-13 17:14] VITALS: BP 97/55
--- NOTE | 2020-05-13 18:47 | NUR ---
PATEINT RESTING COMFORTABLY IN BED, HEMODIALYSIS IN PROGRESS, DIALYSIS NURSE AR BEDSIDE, NO C/O PAIN OR DICOMFORT AT THIS TIME, WILL ENDORSE CARE TO PM NURSE
--- NOTE | 2020-05-13 18:50 | NUR ---
PER DIALYSIS NURSE 1.2 L REMOVED, VS WNL PATIENT TOLERATED WELL
--- NOTE | 2020-05-13 20:35 | NUR ---
PT. AWAKE, ALERT, ORIENTED X4. DENIES HEADACHE OR DIZZINESS. BREATH SOUNDS CLEAR , DIMINISHED BLL, RESP. EVEN, UNLABORED. PT. ON 8L NRM, SAT. LEVEL 95%. DENIES SOB. ABD. SOFT AND ROUND, BOWEL SOUNDS ACTIVE. DENIES NAUSEA, DENIES ABD. PAIN. AV SHUNT TO LUE SECURED WITH ADDITIONAL DRSG, NO FURTHER BLEEDING. HEPLOCK TO RUPPER ARM, FLUSHED WORKING WELL. HEPLOCK TO RT. WRIST REMOVED, TENDER PER PT. CALL LIGHT WITHIN REACH.
[2020-05-13 21:46] VITALS: BP 137/70
--- NOTE | 2020-05-13 23:09 | NUR ---
PT. CALLED TO SAY HIS HANDS WAS HURTING, HES IN A LOT OF PAIN. IV ZITHROMAX WAS INFUSING TO RAC. IV INFILTRATION NOTED, SLIGHTLY SWOLLEN AND IV PUMP WAS BEEPING, PRESSURE HIGH. ONLY 67CC OUT OF 250CC WAS INFUSED. IV CATH REMOVED AND DRSG APPLIED, SITE SECURED. PT. STATED THAT HIS PAIN LEVEL IS 10/10. CALLED LIGHT USED TO ALERT NURSE AT NURSES STATION TO CHECK FOR PAIN MEDICATION. [place] MEDICATION NEEDS RENEWAL PER NURSE AND MD WAS RESIDENT WAS CONTACTED. PT. MADE AWARE WHILE IM IN THE ROOM OF PROCEDURE FOR REORDERING PAIN MEDICATION.P PT IS NOT SATISFIED WITH EXPLAINATION AND REPEATEDLY ASKS IF NOTHING IS GONNA BE GIVEN FOR PAIN MEDICATION. I WAS ALERTED THAT MEDICATION IS BEING ORDERED AND HAS TO BE VERIFIED BY PHARMACY. WILL GIVE MEDICATION WHEN VERIFIED.
--- NOTE | 2020-05-14 04:37 | NUR ---
DR. JACKSON MADE AWARE OF HEPARIN IV ORDER THAT NEEDS TO BE DISCONTINUED ON PT.'S PROFILE.
[2020-05-14 05:56] VITALS: BP 132/57
--- NOTE | 2020-05-14 07:15 | NUR ---
RECEIVED PT FROM NIGHT RN. PT RESTING IN BED. SEMI KELLY'S POSTIION. AAOX4, DENIES SILVERMAN/DIZZINESS. RES E/U, DENIES SOB. O2 SAT 95% ON 8 LPM NRB. TELE MONITOR [address] SR, DENIES CP/PRESSURE. PERIPHERAL PULSES PALPABLE, EDEMA ON BUE NOTED. ABDOMEN SOFT. DENIES N/V/D/C. HD PT, ANURIC. ANGELIKA SHUNT WITH BULKY DRESSING NOTED, CDI AND PATENT. UNABLE TO PALPATE/AUSCULTATE SHUNT FOR BRUIT AND THRILL DUE TO BULKY DRESSING. UNABLE TO REMOVED DRESSING DUE TO BLEEDING FROM PREVIOUS SHIFT. WILL ASSESS LATER. GENERALIZED WEAKNESS NOTED. IV SITE TO RAC TKO W NO S/S OF INFILTRATION NOTED. SALINE LOCKED IV. SAFETY PRECAUTIONS IN PLACE. WILL CONTINUE TO MONITOR.
--- NOTE | 2020-05-14 08:00 | NUR ---
TELE CHEMICAL SALES REPRESENTATIVE REPORTED O2 SAT SUSTAINING IN THE 70%. FOUND PT WIHT NRB MASK OFF, PT WAS EATING BREAKFAST. PLACED NC AT 6LPM, O2 SAT IN 85%. WAITED UNTIL PT WAS DONE EATING BREAKAST AND PLACED NRB MASK ON 10 LPM, O2 SAT AT 95%.
[2020-05-14 08:38] VITALS: BP 154/34
[2020-05-14 09:12] LABS: CALCIUM 8.2 mg/dL (8.5-10.1); CARBON DIOXIDE 30.6 mmol/L (21-32); MAGNESIUM 2.1 mg/dL (1.8-2.4); PHOSPHOROUS 6.6 mg/dL (2.5-4.9); POTASSIUM SERUM 3.5 mmol/L (3.5-5.1)
[2020-05-14 10:03] LABS: PLATELET COUNT 374 x10^3mcL (130-400)
[2020-05-14 10:05] LABS: CREATININE SERUM 6.3 mg/dL (0.7-1.3)
--- NOTE | 2020-05-14 10:22 | NUR ---
DR HIGUERA MADE AWARE OF LAB VALUES: HGB 6.7, HCT 20.7, AND WBC 19
--- NOTE | 2020-05-14 11:24 | NUR ---
O2 SAT SUSTAINING AT 98% ON 8 LPM NRB. RES E/U, NO RESPIRATORY DISTRESS NOTED. CALLED RT TO PLACE OXYMIZER TO WEAN O2. ALSO, DAUGHTER CALLED ASKING IF PATIENT IS BEING DISCHARGE TODAY. UPDATED DAUGHTER PT IS NOT BEING DISCHARGE AND PROVIDED UPDATE ON PATIENT'S STATUS. DAUGHTER SEEMED APPRECIATIVE.
[2020-05-14 11:58] LABS: BAND NEUTROPHIL 1 % (0-10); MONOCYTE 5 % (0-7); SEGMENTED NEUTROPHILS 89 % (37-75); rbc morphology (normal/abnorm) ABNORMAL (NORMAL)
--- NOTE | 2020-05-14 12:46 | NUR ---
CALLED TO AND MADE AWARE THE DIASTOLIC B/P IN THE 30'S. H/H-6.05/[address]KHABIBULINA JOYA TO TRANSFUSE BLOOD DURING DIALYSIS W/CH SCHEDULE TOMORROW.
[2020-05-14 13:49] VITALS: BP 147/35
[2020-05-14 16:32] LABS: BASOPHIL % 0.2 % (0-2); PLATELET COUNT 320 x10^3mcL (130-400)
[2020-05-14 16:38] LABS: RED CELL DISTRIBUTION WIDTH 14.8 % (11.5-14.5)
--- NOTE | 2020-05-14 16:41 | NUR ---
LAB CALLED W CRITICAL VALUE OF HCT 6.[address] HIGUERA MADE AWARE. PER OKAY TO TRANSFUSE BLOOD DURING DIALYSIS SCHEDULED TOMORROW.
[2020-05-14 16:50] VITALS: BP 137/36
[2020-05-14 17:56] LABS: rbc morphology (normal/abnorm) ABNORMAL (NORMAL)
[2020-05-14 17:58] LABS: ovalocyte/elliptocyte 1+
--- NOTE | 2020-05-14 18:40 | NUR ---
PT RESTING IN BED WITHOUT APPARENT DISTRESS. NO SIGNIFICANT CHANGES NOTED. WILL ENDORSE CARE TO NEXT SHIFT
--- NOTE | 2020-05-14 20:03 | NUR ---
PT. AWAKE, ALERT, SOME GENERALIZED WEAKNESS. ABLE TO MAKE NEEDS KNOWN. ABLE TO REPOSITION SELF IN BED. PT. ON 8L OXYMIZER. SAT. LEVEL 94%. NSR ON MONITOR. LUE AV SHUNT WITH GOOD BRUIT AND THRILL. DRSG TO LUE CDI, NO BLEEDING NOTED. IV TO RAC INTACT. ABD. SOFT AND ROUND, BOWEL SOUNDS ACTIVE. CALL LIGHT WITHIN REACH.
[2020-05-14 20:27] VITALS: BP 126/56
--- NOTE | 2020-05-14 22:47 | NUR ---
PT. HAD LARGE SOFT, LUISA TEXTURED STOOL. DARK BROWN TO ALMOST BLACK IN COLOR. NO OBVIOUS BLOOD NOTED IN STOOL, ONLY BLACK COLOR. SPECIMEN COLLECTED AND SENT TO LAB FOR OCCULT BLOOD.
--- NOTE | 2020-05-15 00:23 | NUR ---
PT. DOZING, EYES CLOASED. APPEARS COMFORTABLE. O2 SAT LEVEL 98% AT THIS TIME. PT. REMAINS ON 8L OXYMIZER. NO RESP. DISTRESS THUS FAR. CALL LIGHT REMAINS WITHIN REACH.
[2020-05-15 05:43] VITALS: BP 155/34
--- NOTE | 2020-05-15 06:36 | NUR ---
PT. DOZING AT THIS TIME. PT. ON 8L OXYMIZER. NO C/O PAIN THROUGHOUT THE NIGHT. IV SITE INTACT, HEPLOCKED. CALL LIGHT WITHIN REACH. WILL ENDORSE PT. CARE TO INCOMING NURSE.
[2020-05-15 07:27] LABS: BASOPHIL % 0.1 % (0-2); PLATELET COUNT 323 x10^3mcL (130-400)
--- NOTE | 2020-05-15 07:49 | NUR ---
RECEIVED PT FROM INDUSTRIAL ENGINEERING PROFESSOR RN. AOX4 ABLE TO MAKE NEEDS KNOWN. DENIES SILVERMAN/DIZZINESS, BELINDA CP/PRESSURE. LUNGS DIMINISHED BL ON 8 L VIA OXYMIZER, DENIES SOB/COUGH, RESP E/U. ABDOMEN SOFT/ROUND, DENIES N/V/D, BOWEL SOUNDS ACTIVE. LUE AV SHUNT IN PLACE, CDI. GENERALIZED WEAKNESS. SKIN INTACT, NO C/O PAIN. IV TO RAC PATENT, CDI NO REDNESS/SWELLING NOTED. CALL LIGHT IN REACH, WILL CONTINUE TO MONITOR.
[2020-05-15 08:03] VITALS: BP 144/68
[2020-05-15 08:11] LABS: CALCIUM 8.1 mg/dL (8.5-10.1); CARBON DIOXIDE 29.7 mmol/L (21-32); MAGNESIUM 2.2 mg/dL (1.8-2.4); PHOSPHOROUS 7.4 mg/dL (2.5-4.9); POTASSIUM SERUM 4.1 mmol/L (3.5-5.1)
[2020-05-15 08:13] LABS: CREATININE SERUM 7.9 mg/dL (0.7-1.3)
--- NOTE | 2020-05-15 09:10 | NUR ---
PAGED DR CHAVEZ LASER SET UP OPERATOR MD FOR DR FALCON. AWAITING CALL BACK.
--- NOTE | 2020-05-15 09:18 | NUR ---
PAGED DR HEMPHILL JAMMER OPERATOR FOR DR FALCON REGARDING DIALYSIS ORDER. PAGED DIALYSIS NURSE TO OBTAIN ORDER FOR HD.
--- NOTE | 2020-05-15 11:12 | NUR ---
SPOKE TO PT AT THE BEDSIDE FOR PICC LINE PLACEMENT EXPLAINED ITS BENEFIT AND USE, PT AGREEABLE PER . NIYAH RN ASSIGNED TO THIS PT MADE AWARE OF ABOVE.
[2020-05-15 11:40] LABS: rbc morphology (normal/abnorm) ABNORMAL (NORMAL)
--- NOTE | 2020-05-15 12:02 | NUR ---
ORDER FOR PICC LINE PLACEMENT. AMITA(PICC LINE NURSE) CALLED AND CONFIRMED WITH HER OF PICC LINE ORDER. WILL BE COMING TO SEE PT. NIYAH JENKINS ASSIGNED TO THIS PT MADE AWARE OF ABOVE.
[2020-05-15 12:25] VITALS: BP 111/72
--- NOTE | 2020-05-15 13:46 | NUR ---
CALLED AND SPOKE TO (NEPROLOGIST) AND MADE HIM AWARE THAT PT IS GONNA HAVE A PICC LINE PLACEMENT, NEPHRO HAS CLEARED PT TO HAVE A PICC LINE PLACED. AMITA(PICC LINE NURSE) HERE IN THE UNIT AND MADE HER AWARE OF ABOVE. NIYAH JENKINS ASSIGNED TO THIS PT AWARE OF ABOVE.
--- NOTE | 2020-05-15 14:21 | NUR ---
STAT CXR ORDERED FOR PICC LINE PLACEMENT
[2020-05-15 16:51] VITALS: BP 98/48
--- NOTE | 2020-05-15 18:07 | NUR ---
PER PT, OK TO GIVE INFORMATION REGARDING HIS STATUS TO HIS SISTER IFEANYI [phone], [phone]
--- NOTE | 2020-05-15 18:08 | NUR ---
PT TITRATED TO 6L VIA OXYMIZER, O2 SAT 98%
--- NOTE | 2020-05-15 19:45 | NUR ---
RECEIVED PT FROM AM NURSE. PT AWAKE AND ALERT X4, ABLE TO FOLLOW COMMANDS AND MAKE NEEDS KNONW. TELE#15 READING SR, DENIES CP/PRESSURE AT THIS TIME. PALPABLE PULSES TO ALL EXTREMETIES. NO EDEMA NOTED. DIMINISHED LUNG SOUNDS, BREATHING EVEN AND UNLABORED ON 6L OXIMYZER. O2 SAT 100%. DECREASED O2 TO 5L OXIMYZER. O2 SAT READING AT 95%. NO SOB NOTED. ABD SOFT AND NONDISTENED, ACTIVE BS X4 QUAD. DENIES N/V. PT ON HD, ANURIC. LAST HD 05/15 WITH 2L OUT. AV SHUNT TO LUE WITH GOOD THRILL AND BRUIT. LEFT SIDED WEAKNESS. WHEELCHAIR BOUND AT BASELINE. IV TO RAC AND PICC TO SARKIS PATENT AND INTACT. SITES WNL. NO ACUTE DISTRESS NOTED. BED AT LOWEST SETTING.SIDE RAILS X2 UP. CALL LIGHT WITHING REACH. WILL CONT TO MONITOR.
[2020-05-15 21:11] VITALS: BP 138/57
--- NOTE | 2020-05-16 00:15 | NUR ---
PT RESTING COMFORTABLY IN BED, BREATHING EVEN AND UNLABORED ON 5L OXIMYZER. O2 SAT 99%. PT EASILY AROUSABLE TO VERBAL STIMULI. NO ACUTE DISTRESS NOTED. SAFETY PRECAUTIONS IN PLACE. CALL LIGHT WITHING REACH. WILL CONT TO MONITOR.
--- NOTE | 2020-05-16 06:27 | NUR ---
0515 PT BS 41, RECHECKED AND IT WAS 36. PT MOANING AND OPENING EYES TO TACTILE STIMULI. D50 GIVEN AT THIS TIME. BP 141/40, HR 80, O2 SAT 88% ON 5L OXIMYZER. INCREASED O2 TO 6L OXIMYZER. O2 WENT UP TO 92%. PT RESPONDING TO VERBAL STIMULI STATES FEELING WEAK AND TIRED. 0530 BS RECHECKED, 182, PT AWAKE AND ALERT, BRETHING EVEN AND UNLABORED, O2 SAT 93%. PT STATES HAVING LOOSE STOOLS DURING SHIFT. NO OTHER ACUTE CHANGES DURING SHIFT. ALL NEEDS ASSESSED AND ATTENDED TO. SAFETY PRECAUTIONS IN PLACE. CALL LIGHT WITHING REACH. WILL CONT TO MONITOR AND ENDORSE CARE TO AM NURSE.
[2020-05-16 06:50] VITALS: BP 141/40
--- NOTE | 2020-05-16 07:14 | NUR ---
RECEIVED PATIENT FROM NETWORK ENGINEER RN, AOX4, TELE 15, NSR, NO SILVERMAN/DIZZINESS, NO SOB/CP, O2 AT 6LPM OXYMIZER, 100% O2 SAT, NO N/V/ABD PAIN, ANURIC, AV SHUNT LUE, GENERALIZED WEAKNESS, SKIN DRY AND INTACT, NO PAIN AT THIS TIME, PICC LINE RUE PATENT. CALL LIGHT WITHIN REACH, BED AT LOWEST POSITION, SIDE RAILS UP.
--- NOTE | 2020-05-16 08:29 | NUR ---
MEDICATIONS GIVEN PER EMAR.
[2020-05-16 08:30] VITALS: BP 168/68
--- NOTE | 2020-05-16 08:53 | NUR ---
CALLED [facility] 3X. NO ANSWER.
--- NOTE | 2020-05-16 09:05 | NUR ---
BLOOD BANK CALLED AND SAID PATIENT'S CONVALESCENT PLASMA IS READY BUT TYPE AND SCREEN IS . PAGED DR MEDINA REGARDING CONVALESCENT PLASMA TRANSFUSION AND ABOVE STATUS, WILL WAIT FOR CALLBACK
[2020-05-16 09:34] LABS: PLATELET COUNT 295 x10^3mcL (130-400)
[2020-05-16 09:37] LABS: C REACTIVE PROTEIN 4.8 mg/dL (<=0.9); CALCIUM 7.8 mg/dL (8.5-10.1); CARBON DIOXIDE 30.8 mmol/L (21-32); PHOSPHOROUS 5.3 mg/dL (2.5-4.9); POTASSIUM SERUM 3.4 mmol/L (3.5-5.1)
[2020-05-16 09:53] LABS: CREATININE SERUM 6.2 mg/dL (0.7-1.3)
[2020-05-16 09:58] LABS: BASOPHIL % 0 % (0-2); RED CELL DISTRIBUTION WIDTH 18.2 % (11.5-14.5)
--- NOTE | 2020-05-16 10:17 | NUR ---
[facility] CALLED FOR CREATININE 6.2 AND GLUCOSE 53. ACCUCHECK DONE WITH CBG 56. PATIENT HAS NO SUBJECTIVE COMPLAINTS, EATING AT BEDSIDE , 25% OF MEAL. D50W IVP GIVEN.
--- NOTE | 2020-05-16 10:32 | NUR ---
VENANCIO WHITESIDE MADE AWARE OF WBC 22.0
--- NOTE | 2020-05-16 10:38 | NUR ---
(HUMAN CAPITAL CONSULTANT) IN, VERIFIED AND CONFIRMED WITH HIM ORDER OF TWO CONVALESCENT PLASMA. OKAY TO TRANSFUSE ONCE CONVALESCENT X2 AVAILABLE PER . CALLED BLOOD BANK AND MADE STAFF FROM BLOOD BANK AWARE OF ABOVE. OLIVIA JENKINS ASSIGNED TO THIS PT MADE AWARE OF ABOVE.
--- NOTE | 2020-05-16 11:17 | NUR ---
ACCUCHECK DONE WITH CBG 185.
--- NOTE | 2020-05-16 11:21 | NUR ---
PATIENT HAD HYPOGLYCEMIC EPISODES THIS MORNING WITH CBG OF 56. PER TIRE SERVICE SUPERVISOR STEVO, DO NOT COVER WITH INSULIN REGULAR
--- NOTE | 2020-05-16 11:57 | NUR ---
DR MEDINA MADE AWARE THAT AZITHROMAX FELL OFF EMAR AND PATIENT RECEIVED 6 DAYS OF [address]ROMAX. PER DR MEDINA, NO NEED TO REORDER. PATIENT RECEIVED ENOUGH DAYS OF AZITHROMAX.
[2020-05-16 12:00] VITALS: BP 154/67
--- NOTE | 2020-05-16 12:40 | NUR ---
VITAL SIGNS STABLE. PATIENT NOT IN DISTRESS. O2 AT 6LPM OXYMIZER, O2 SAT 92%. PICC LINE INTACT AND PATENT, ALICE GUZMAN 2ND WITNESS TO CONFIRM PLASMA CONVALESCENT TRANSFUSION. PLASMA CONVALESCENT TRANSFUSION STARTED.
--- NOTE | 2020-05-16 12:55 | NUR ---
PATIENT HAS NO IMMEDIATE HYPERSENSITIVITY REACTION. VITAL SIGNS STABLE.
--- NOTE | 2020-05-16 15:23 | NUR ---
Follow-up Nutrition Assessment: 222B LYNSEY CASTREJON 60M Dx: viral PNA, COVID r/o Chronic renal failure PMHx: DM, Stroke, ESRD on HD (MWF), HTN Labs: (05/15) WBC 19.4H, H/H 6.5/20L, CL 96L, BUN 85H, Cr 7.9H, BG 71L, Phos 7.4H, (05/16) POC 182H, (05/12) CRP 6.2H, (05/05) A1C 6.5H, Ferritin, 2260H, AST 41H, ALT 14L, Alb 3.3L, TAG 192H, HDL 31L Meds: Colace, Decadron, D50%, Lantus, Lipitor, Norvasc, Zithromax, Zyloprim PRN meds: Humulin, Hydralazine, Mucinex, [place], Ventolin, Zofran Diet: CCHO, K2, Pro 100g, low phosphorus PO Intake: (05/14) B: 80% *one entry since last visit Weights: (05/16) 70.931kg, Edema: none noted Last BM: 05/14 Skin: intact Dany: [address] (05/13/2020): per nursing, pt is having a difficult time eating d/t low oxygen. Pt is not tolerating nasal cannula oxygen and is on 5L 02 via NRB, nurse estimated PO intake is about 50% today, poor vision per pt's primary nurse (L eye enucleation), pt's oxygen levels have gotten worse so PO intake has decreased. Per progress note today, pt tested + for COVID-19, per MD note pt is on 10L 02 RD Note (05/16): Per progress note (05/15) pt getting dialysis, no new acute event. Per pt's primary RN, pt had 25% of breakfast today possibly d/t being tired. RN mentioned that pt was self-sufficient when he wanted to eat, and pt did not have any GI distress or BM today. Additionally, RN also mentioned that pt's blood glucose had been fluctuating, and WIRE INSERTER was notified. Estimated Nutritional Needs Based on ideal body weight (65kg) Energy: 7437-6649 kcal/day (30-35 kcal/kg for ESRD on HD) Protein: 78-91 g/day (1.2-1.4 g/kg for ESRD on HD) Fluid: 6839-7960 mL/day (1 mL/kcal) Nutrition Diagnosis: (ongoing) 1. Increased energy and protein needs r/t increased energy and protein expenditure a/e/b pt has ESRD on HD. (ongoing) 2. Altered nutrition related lab value r/t endocrine and renal dysfunction a/e/b pt decreased H/H, elevated BUN/Cr, blood glucose and phosphorus Intervention 1. Continue CCHO, K 2, protein 100g, Low phosphorus 2. Recommend Nepro QD to aid PO intake. It will provide additional 425kcal and 19.1g protein. Monitor/Evaluate Goal: PO intake at least 75% of estimated needs (not met, ongoing) Monitor: PO intake, Labs, GI function, Body weight, ONS intake F/U in 2-3 days as high risk 05/18-7
--- NOTE | 2020-05-16 15:23 | NUR ---
1. Continue CCHO, K 2, protein 100g, Low phosphorus 2. Recommend Nepro QD to aid PO intake. It will provide additional 425kcal and 19.1g protein.
--- NOTE | 2020-05-16 16:00 | NUR ---
VITAL SIGNS STABLE. PICC SARKIS PATENT AND INTACT. ALICE MOHR WITNESS FOR PLASMA CONVALESCENT TRANSFUSION.
[2020-05-16 16:25] VITALS: BP 156/73
--- NOTE | 2020-05-16 17:28 | NUR ---
ACCUCHECK DONE WITH CBG 158. NO INSULIN GIVEN . PATIENT HAD HYPOGLYCEMIC EPISODES. POOR INTAKE OF 25% OF MEAL.
--- NOTE | 2020-05-16 17:29 | NUR ---
TRANSFUSION FOR CONVALESCENT PLASMA DONE. VITAL SIGNS STABLE. PATIENT NOT IN ACUTE DISTRESS. NO HYPERSENSITIVITY REACTION.
--- NOTE | 2020-05-16 20:30 | NUR ---
RECEIVED PT LAYING IN BED WITH HOB ELEVATED. AAOX4, DROWSY. ON TELE #15 [address] SR. DENIES CHEST PAIN/CHEST PRESSURE. BREATHING IS EVEN AND UNLABORED ON 6L OXYMIZER. LUNG SOUNDS DIMINISHED. DENIES SOB. SAO2 READING 98%. AV SHUNT TO ANGELIKA +BRUIT/THRILL. ANURIC. GENERALIZED WEAKNESS/L SIDED WEAKNESS. SKIN INTACT. DENIES ANY PAIN. IV TO RAC PATENT AND INTACT. NO ERYTHEMA NOTED. PICC LINE TO ANDREA BANKS. CONTACT AND DROPLET PRECAUTIONS IN PLACE. BED IN LOWEST POSITION. CALL LIGHT WITHIN REACH. WILL CONTINUE TO MONITOR.
[2020-05-16 21:16] VITALS: BP 174/79
[2020-05-16 22:30] VITALS: BP 157/77
--- NOTE | 2020-05-16 22:30 | NUR ---
ROUTINE MEDICATIONS ADMINISTERED AND TOLERATED WELL. HYDRALAZINE ADMINISTERED FOR BP OF 174/79. MONSE REASSESS AND CHECK EFFECTIVENESS. PT DESAT TO 80'S. PLACED PT ON 15L OXYMIZER, SUSTAINING IN THE 80'S. PT IS NOW ON 15L OXYMIZER AND 15 NRB. SAO2 READING 94%. WILL CONTINUE TO MONITOR.
--- NOTE | 2020-05-17 00:02 | NUR ---
PT RESTING COMFORTABLY. SAO2 READING 100%. WILL CONTINUE TO MONITOR.
[2020-05-17 00:35] VITALS: BP 174/79
--- NOTE | 2020-05-17 03:31 | NUR ---
PT RESTING COMFORTABLY. SAO2 READING 100% ON 15L NRB AND 15L OXYMIZER. WILL CONTINUE TO MONITOR.
[2020-05-17 05:58] VITALS: BP 162/82
[2020-05-17 06:39] LABS: PLATELET COUNT 226 x10^3mcL (130-400)
[2020-05-17 06:42] LABS: RED CELL DISTRIBUTION WIDTH 19.1 % (11.5-14.5)
--- NOTE | 2020-05-17 06:45 | NUR ---
RECEIVED CRITICAL LAB VALUE, WBC 20.1. PAGED DR GONZALES. AWAITING PHONE CALL BACK.
--- NOTE | 2020-05-17 07:04 | NUR ---
PT RESTED COMFORTABLY THROUGHOUT THE NIGHT WITH NO ACUTE EVENTS OCCURRING DURING THE SHIFT. COMFORT AND SAFETY MEASURES MAINTAINED. ALL NEEDS ASSESSED AND ATTENDED TO. CONTACT AND DROPLET PRECAUTIONS IN PLACE. WILL CONTINUE TO MONITOR AND ENDORSE CARE TO DAY SHIFT NURSE.
[2020-05-17 07:07] LABS: C REACTIVE PROTEIN 7.9 mg/dL (<=0.9); CARBON DIOXIDE 25.3 mmol/L (21-32); MAGNESIUM 2.2 mg/dL (1.8-2.4); POTASSIUM SERUM 4.4 mmol/L (3.5-5.1)
[2020-05-17 07:13] LABS: CREATININE SERUM 7.7 mg/dL (0.7-1.3)
--- NOTE | 2020-05-17 08:00 | NUR ---
RECEIVED PATIENT ALERT AND ORIENTED TIMES FOUR. PATIENT HAS A AV SHUNT TO THE LEFT UPPER ARM WITH DRESSING AMD INTACT AND GOOD BRUIT NOTED. DANILO HAS A PICC LINE TO RIGHT UPPER ARM AND FLUSHES EASILY. CONTINUED ON DECADRON AND HAS BEEN WITH NON REBREATHER AND OXYMIZER IN PLACE DUE TO LOW SATURATION LAST NIGHT. HE IS DOING BETTER THIS AM AND HOB UP AND ENCOURORGED DIET TOLERATE. GAVE [place] MEDICAITON INCLUDEING THE LANTUS AND LAST BLOOD SUGAR AT 108. PATIENT HAS NTOED VITALS AT THIS TIME AT 96.9, 83, 20, 162/82, 99%. PATIENT HAS COMPLETED HIS ZITHROMAX AND HAS BEEN WTIOUT ANY ADVERSE REACTION TO THE ANTIBITOIC. HE RECIEVED TWO UNITS OF CONVALESANT PLASMA AND ALSO RECEIVED ONE UNIT OF PRBCS DURING HD. PATIENT HAS NO KNOWN ALLERGY AND HAS AT THIS TIME DENIED ANY PAIN OR DISCOMFORT. PATIENT IS WHEELCHAIR BOUND IS HIS BASELINE AND NTOED CONTRACUTRE TO THE LEFRT ARM AND HAD DUE TO HISTORY OF CVA. 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
[2020-05-17 08:32] LABS: BAND NEUTROPHIL 0 % (0-10); BASOPHIL 0 % (0-2); MONOCYTE 5 % (0-7); PLATELET MORPHOLOGY PLATELETS NORMAL; SEGMENTED NEUTROPHILS 89 % (37-75); rbc morphology (normal/abnorm) ABNORMAL (NORMAL)
[2020-05-17 08:52] VITALS: BP 156/31
--- NOTE | 2020-05-17 11:30 | NUR ---
SUE POLLARD SUGAR AT THIS ITME A T164 AND HELD THE INSULIN COVERAGE DESIREE RUSSELL ON DIALYSIS AT THIS TIME.
--- NOTE | 2020-05-17 13:00 | NUR ---
POST DIALYSIS AND PATEIN THAS 2 LITERS OUT BUT COMPLAINS OF SOB. CALLED RT FOR TREAMENT. PATIENT ENCOURAEG TO EAT HIS MEAL OFFERED WELL. WILL CONTINUE TO MONITOR.
[2020-05-17 13:59] VITALS: BP 116/47
--- NOTE | 2020-05-17 14:47 | NUR ---
STATES FEELS BETTER BUT STILL SATURATION IS LOWER THAN HOPED FOR THIS TIME PLAN IS AT SOME POINT TO DISCHARGE HOME. PATIENT HAS BEEN HERE FOR A LOW TIME AND HE CONTINUE TO DESAURATE AND THE NEED TO GIVE SUPPLIMENTAL 02. WILL CONTINUE TO MONTIOR INDICATED.
--- NOTE | 2020-05-17 15:08 | NUR ---
SPOKE WITH PATIENT'S SISTER, IFEANYI. SHE EXPRESSED CONCERN THAT PATIENT WAS HAVING DIARRHEA AND NEEDS TO BE WASHED FREQUENTLY. REASSURED HER THAT WE WILL CHECK PATIENT MORE FREQUENTLY. SPOKE WITH ATTENDING NURSE AND [employer]MI[employer] TE[employer]. SHE WOULD LIKE TO BE REACHED FOR ANY CONCERNS. TEL: AND
--- NOTE | 2020-05-17 16:51 | NUR ---
PATIENT COMPLAINED OF NEEDING TO HAVE A BOWEL MOVEMENT BUTY THE FAMILY STATE HE HAS SOILED THE BED. THE WAITSTAFF CAPTAIN WAS JUST I THERE AND NO STOOL AND RETURNED AND STILL NO STOOL. PATEI TIS SURE HE CAN NOT STAND OR AMBULATE ADN ADVISED THAT STAF FWILL CLEAN HIM WHEN HE HAS A STOLOL BECAUSE OF THIS. PATIENT ENCOURAGE REST AND TO NOT TALK ALOT HE IS GETTING SOB.
[2020-05-17 18:36] VITALS: BP 125/56
--- NOTE | 2020-05-17 18:50 | NUR ---
PATIENT ENCOURAGED TO DO LESS TALKING ON THE PHONE HE BECOMES SOB. CONTINUED ON OXYMIZER AND THE NON REBREATHER. BUT IF HE DOES NOT BREATH BETWEEN HE WILL DESATURATE.
--- NOTE | 2020-05-17 19:35 | NUR ---
RECEIVED PT FROM [facility] NURSE. PT IS AAOX4, IRISH AND HUNGARIAN SPEAKING, DENIES HEADACHE/NAUSEA/DIZZINESS AT THIS TIME. PT IS BLIND ON LEFT EYE. PT IS TELE #15, NSR, DENIES CHEST PAIN AT THIS TIME. PULSES ARE EQUAL BILATERALLY, NO EDEMA NOTED. PT HAS DIMINISHED BILATERALLY LUNGS, ON 15L OXYMIZER AND 15L NONREBREATHER. ABDOMEN IS SOFT AND ROUND, NO PAIN UPON PALPATION. NORMOACTIVE X4 QUADRANTS, LAST BM 05/15. PT IS HEMODIALYSIS PATIENT, LEFT AV SHUNT, PT IS ANURIC. PT HAS GENERALIZED WEAKNESS, WHEELCHAIR BOUND. SKIN IS DRY AND INTACT, NO LESIONS NOTED. PT HAS IV TO RAC 20G. PT ALSO HAS PICC LINE IN SARKIS, IV SITE IS PATENT, NO REDNESS OR SWELLING NOTED. PT IS CALM AND COOPERATIVE. BED IN LOWEST POSITION, CALL LIGHT WITHIN REACH. WILL CONTINUE TO MONITOR.
[2020-05-17 21:12] VITALS: BP 133/48
--- NOTE | 2020-05-18 01:14 | NUR ---
PT RESTING IN BED INTERMITTENTLY WITH EYES CLOSED. PATIENT REMAINS OXYMIZER AND NONREBREATHER, DENIES SOB/CHEST PAIN AT THIS TIME. NO ACUTE CHANGES IN PATIENT'S STATUS AT THIS TIME. BED IN LOWEST POSITION, CALL LIGHT WITHIN REACH.
--- NOTE | 2020-05-18 05:49 | NUR ---
PATIENT RESTED INTERMITTENTLY THROUGHOUT THE NIGHT. PT DENIES SOB/CHEST PAIN. PT REMAINS ON 15L OXYIMZER AND 15L NONREBREATHER AT THIS TIME. NO ACUTE CHANGES IN PATIENT'S STATUS. ALL COMFORT CARE ACCOUNTED FOR AT THIS TIME. BED IN LOWEST POSITION, CALL LIGHT WITHIN REACH. WILL CONTINUE TO MONITOR UNTIL APPROPRIATE TO ENDORSE TO DAYSHIFT NURSE.
[2020-05-18 06:00] VITALS: BP 127/45
[2020-05-18 06:45] LABS: PLATELET COUNT 233 x10^3mcL (130-400)
[2020-05-18 07:12] LABS: BASOPHIL % 0 % (0-2); RED CELL DISTRIBUTION WIDTH 20.6 % (11.5-14.5)
--- NOTE | 2020-05-18 07:13 | NUR ---
LAB REPORTED WBC OF 21.6. WILL ENDORSE TO DAYSHIFT NURSE.
[2020-05-18 07:17] LABS: CALCIUM 8.5 mg/dL (8.5-10.1); CARBON DIOXIDE 34.7 mmol/L (21-32); MAGNESIUM 2.4 mg/dL (1.8-2.4); POTASSIUM SERUM 3.9 mmol/L (3.5-5.1)
--- NOTE | 2020-05-18 07:20 | NUR ---
RECEIVED PT FROM RAMA JENKINS. PT IS AAOX4. PT ON TELE #34. PT ON 15L OXYMIZER AND 15L NONREBREATHER. PT DENIES SOB OR DISTRESS. PT HAS SARKIS PICC LINE AND IV TO RAC. PICC LINE DRESSING CDI AND PATENT. IV TO RAC CDI AND PATENT. PT IS STABLE W/ NO DISTRESS AT THIS TIME. ALL COMFORT AND SAFETY MEASURES IN PLACE. BED IN LOW POSITION, 2 SIDE RAILS UP. CALL LIGHT WITH IN REACH. ALL QUESTIONS AND CONCERNS ADDRESSED. WILL CONTINUE TO MONITOR PT.
[2020-05-18 07:22] LABS: C REACTIVE PROTEIN 13.2 mg/dL (<=0.9)
--- NOTE | 2020-05-18 07:23 | NUR ---
ENDORSED CARE TO DAYSHIFT NURSE. ALL QUESTIONS/CONCERNS ADDRESSED.
[2020-05-18 07:24] LABS: CREATININE SERUM 6.4 mg/dL (0.7-1.3)
[2020-05-18 08:30] VITALS: BP 133/30
[2020-05-18 12:25] VITALS: BP 126/29
--- NOTE | 2020-05-18 15:27 | NUR ---
Follow-up Nutrition Assessment: 222B LYNSEY CASTREJON 60M HR Dx: viral PNA, COVID r/o Chronic renal failure PMHx: DM, Stroke, ESRD on HD (MWF), HTN Labs: (05/18) WBC 21.6H, H/H 8.8/27L, BUN 64H, Cr 6.4H, BG 165H, POC BG 156H, CRP 13.2H, (05/16) Phosphorus 5.3H, (05/05) A1C 6.5H, Ferritin, 2260H, AST 41H, ALT 14L, Alb 3.3L, TAG 192H, HDL 31L Meds: Colace, Decadron, Lantus, Lipitor, Norvasc, Procrit (M/W/F), Zyloprim PRN meds: D50%, Humulin, Hydralazine, Mucinex, [place], Ventolin, Zofran Diet: CCHO, K2, Pro 100g, low phosphorus PO Intake: 50-100% x 14 meals with average PO intake of 68% since admission Weights: (05/18) 70.931kg *no change since last visit Edema: No edema noted Last BM: 05/15 Skin: skin dry and intact Dany: [address] Note (05/16): Per progress note (05/15) pt getting dialysis, no new acute event. Per pt's primary RN, pt had 25% of breakfast today possibly d/t being tired. RN mentioned that pt was self-sufficient when he wanted to eat, and pt did not have any GI distress or BM today. Additionally, RN also mentioned that pt's blood glucose had been fluctuating, and LOG HAULER was notified. RD Note (05/18): Per progress note (05/17), pt remained on 15L oxygen mask, no new event, HD on 05/17. Per pt's primary RN, pt did not eat too much of food, and this morning, pt had approximately 40% of his food. RN also mentioned that low appetite could be caused by SOB when oxygen mask was taken off. Additionally, RN called pt via intercom, and pt reported that he had been drinking his Nepro. Estimated Nutritional Needs Based on ideal body weight (65kg) Energy: 5867-8795 kcal/day (30-35 kcal/kg for ESRD on HD) Protein: 78-91 g/day (1.2-1.4 g/kg for ESRD on HD) Fluid: 7996-5132 mL/day (1 mL/kcal) Nutrition Diagnosis: (ongoing) 1. Increased energy and protein needs r/t increased energy and protein expenditure a/e/b pt has ESRD on HD. (ongoing) 2. Altered nutrition related lab value r/t endocrine and renal dysfunction a/e/b pt decreased H/H, elevated BUN/Cr, blood glucose and phosphorus Intervention 1. Continue CCHO, K 2, protein 100g, Low phosphorus 2. Recommend Nepro BID to aid PO intake. It will provide 850kcal and 38.2g protein. Monitor/Evaluate Goal: PO intake at least 75% of estimated needs (not met, ongoing) Monitor: PO intake, Labs, GI function, Body weight, ONS intake F/U in 2-3 days as high risk 05/20-
--- NOTE | 2020-05-18 15:27 | NUR ---
1. Continue CCHO, K 2, protein 100g, Low phosphorus 2. Recommend Nepro BID to aid PO intake. It will provide 850kcal and 38.2g protein.
[2020-05-18 16:52] VITALS: BP 108/28
--- NOTE | 2020-05-18 19:10 | NUR ---
REPORT GIVEN TO RAMA JENKINS. PT REMAINED STABLE THROUGHOUT MY SHIFT. ALL QUESTIONS AND CONCERNS ADDRESSED. ALL NEEDS MET AT THIS TIME. ALL CARES ENDORSED TO CRADLE SLIDE MAKER RN.
--- NOTE | 2020-05-18 19:30 | NUR ---
RECEIVED PT FROM DAYSHIFT NURSE. PT IS AAOX4, INDONESIAN AND LITHUANIAN SPEAKING, DENIES HEADACHE/NAUSEA/DIZZINESS AT THIS TIME. PT IS BLIND ON LEFT EYE. PT IS TELE #34, NSR, DENIES CHEST PAIN AT THIS TIME. PULSES ARE EQUAL BILATERALLY, NO EDEMA NOTED. PT HAS DIMINISHED BILATERAL BASES, ON 8L OXYMIZER AND 15L NONREBREATHER. ABDOMEN IS SOFT AND ROUND, NO PAIN UPON PALPATION. NORMOACTIVE X4 QUADRANTS, LAST BM 05/18 DURING DAYSHIFT. PT IS ANURIC HAS LEFT AV SHUNT, HEMODIALYSIS PT MWF. SITE IS PATENT, NO REDNESS OR SWELLING NOTED. PT HAS GENERALIZED WEAKNESS, WHEELCHAIR BOUND AT BASELINE. SKIN IS DRY AND INTACT, NO LESIONS NOTED. PT HAS RAC IV WELL S SARKIS PICC LINE IN PLACE. IV SITE IS INTACT, NO REDNESS OR SWELLING NOTED. PT IS CALM AND COOPERATIVE AT THIS TIME. BED IN LOWEST POSITION, CALL LIGHT WITHIN REACH. WILL CONTINUE TO MONITOR.
[2020-05-18 20:54] VITALS: BP 114/54
--- NOTE | 2020-05-19 02:37 | NUR ---
PT RESTING IN BED WITH EYES CLOSED, NO ACUTE DISTRESS NOTED. PT HAS STABLE VITAL SIGNS AT THIS TIME, REMAINING ON 8L OXYMIZER AND 15L NONREBREATHER. BED IN LOWEST POSITION, CALL LIGHT WITHIN REACH. WILL CONTINUE TO MONITOR.
[2020-05-19 05:19] VITALS: BP 132/42
--- NOTE | 2020-05-19 05:31 | NUR ---
PATIENT RESTED INTERMITTENTLY WITH EYES CLOSED THROUGHOUT THE NIGHT. PT REMAINS ON 8L OXYMIZER WITH 15L NONREBREATHER. PT DENIES SOB/CHEST PAIN AT NIGHT. VITAL SIGNS ARE STABLE AT THIS TIME, NO ACUTE CHANGES IN PATIENT'S STATUS. BED IN LOWEST POSITION, CALL LIGHT WITHIN REACH. WILL CONTINUE TO MONITOR UNTIL APPROPRIATE TO ENDORSE TO DAYSHIFT NURSE.
--- NOTE | 2020-05-19 07:10 | NUR ---
RECEIVED BEDSIDE REPORT FROM NIGHT RN. PT RESTING IN BED. RR EVEN AND UNLABORED ON 8L OXIMIZER AND 15L NRB. PT ON TELE#34. DROPLET PRECAUTIONS IN PLACE. WHELCHAIR AT BEDISDE. PT BLIND IN L EYE. CALL LIGHT WITHIN REACH. BED LOCKED IN LOWEST POSITION. WILL CONTINUE TO MONITOR.
--- NOTE | 2020-05-19 07:13 | NUR ---
ENDORSED CARE TO DAYSHIFT NURSE. ALL QUESTIONS/CONCERNS ADDRESSED.
[2020-05-19 08:00] VITALS: BP 104/30
--- NOTE | 2020-05-19 10:50 | NUR ---
PT IN BED RESTING. STILL RECEIVING HD. PT RR LABORED. O2 STAT DROPPED INTO 70S. OXIMIZER INCREASED TO 15L NRB AT 15L. PT NOT TOLERATING HD WELL. HOB ELEVATED. WILL CONTINUE TO MONITOR.
--- NOTE | 2020-05-19 11:50 | NUR ---
HD TURNED ON 25 MINUTES EARLY. PT NOT TOLERATING. O2 SAT FLEXUATES BETWEEN 72%-85%. OXIMIZER AT 15L.NRB AT 15L. RR STILL LABORED. RT AT BEDSIDE. PT TO BE TRANSFERED TO ROOM 246. WILL ENDORSE CARE TO JOHN JENKINS.
[2020-05-19 12:03] VITALS: BP 158/46
--- NOTE | 2020-05-19 14:13 | NUR ---
PATIENT ARRIVED FROM AND RN GEOFFREY. RT IN ROOM WITH PATIENT, PATIENT STATES HE CAN'T BREATH. CALLED PRODUCE LABORER STEVO FOR ABG AND HIGH FLOW OXYGEN. RT TO DRAW ABG. SPOKE WITH PATIENT TO SEE IF AGREEABLE TO INTUBATION, PATIENT NOT ABLE TO UNDERSTAND, TRANSLATION PROVIDED. PATIENT DOES NOT VERBALIZED UNDERSTANDING OF INTUBATION AT THIS TIME, WILL CONTINUE TO MONITOR.
--- NOTE | 2020-05-19 14:42 | NUR ---
RECEIVED A CALL FROM MASSIMO([email or web address].Meli) AND SAID SHE SPOKE TO AND INSTRUCTION AND ORDER TO THEM TO KEEP SAT ABOVE 90%. JOHN JENKINS ASSIGNED TO THIS PT MADE AWARE OF ABOVE.
--- NOTE | 2020-05-19 14:44 | NUR ---
PATIENT PLACED ON HIGH FLOW AT 40 LPM WITH NRB AT 15 LPM. CALLS PLACED TO DAUGHTER MARA AND DONTRELL IN REGARDS TO INTUBATION, NO ANSWERS, VM LEFT FOR BOTH. WILL WAIT FOR RETURN CALL, AND WILL CONTINUE TO MONITOR. PATIENT CURRENTLY AT 90%, RT RECEIVED ORDER FROM DR MEREDITH TO KEEP O2 SAT ABOVE 90%. PATIENT ACROSS FROM NURSES STATION.
--- NOTE | 2020-05-19 14:57 | NUR ---
PT PLACED ON BIPAP AT 1410 BUT DID NOT TOLERATE SO PUT ON HIGH FLOW INSTEAD.
[2020-05-19 16:11] VITALS: BP 121/59
--- NOTE | 2020-05-19 17:41 | NUR ---
SPOKE WITH DONTRELL ABOUT PATIENT BEING MOVED ROOM AND NEED FOR NEGATIVE PRESSURE ROOM AND HIGH FLOW OXYGEN. EXPLAINED TO ABOUT POSSIBLE NEED FOR INTUBATION IF PATIENT DECLINES. ALL QUESTIONS ADDRESSED AT THIS TIME. PATIENT STATES "DO WHATEVER YOU NEED TO, TO KEEP HIM ALIVE". NOTIFIED CHARGE NURSE TRISH. PATIENT CURRENTLY SEATED IN BED AND CONTINUES WITH HIGH FLOW AT 40 L AND NRB AT 15 L. SATS ARE 96-98%. WILL CONTINUE TO MONITOR.
--- NOTE | 2020-05-19 19:30 | NUR ---
RECEIVED REPORT FROM JOHN JENKINS. PT IS AAOX4 AND PALAUAN/KOREAN SPEAKING. PT DENIES SILVERMAN/DIZZINESS. PT ON TELE #15, NSR W/ DEP T WAVE. PT DENIES CP/PRESSURE. PT PULSES PALPABLE AND CAP REFILL <3 SEC. PT HAS DIMINISHED LUNG SOUNDS ON 15L NRB + HIGH FLOW 40L 100% FI02. PT BREATHING SHALLOW/EVEN. PT C/O SOB AT THIS TIME D/T EXERTION WHEN MOVING IN BED. RT MADE AWARE FOR BREATHING TREATMENT. REPOSITIONED PT TO SIT HIGH KELLY'S PER PT REQUEST. PT EDUCATED TO TAKE SLOW DEEP BREATHS WELL. PT SA02 92% AT THIS TIME WITH PREVIOUS SA02 BEING 100%. PT ABD SOFT/ROUND WITH ACTIVE BS X4. PT DENIES N/V/C/D. PT HAS POOR APPETITE. PT IS ANURIC. PT HAS HD (MWF) WITH [facility] AV SHUNT. LAST HD 05/19 WITH 1.7L OUTPUT. PT HAS GENERALIZED WEAKNESS. PT SKIN INTACT. PT DENIES S/S OF PAIN OR DISCOMFORT AT THIS TIME. PT HAS SARKIS PICC LINE, DRESSINGS CDI. ALL NEEDS MET. DROPLET+CONTACT PRECAUTIONS MAINTAINED. CALL LIGHT WITHIN REACH. BED IN LOWEST POSITION. SIDE RAILS X2 UP. WILL CONTINUE TO MONITOR.
--- NOTE | 2020-05-19 20:28 | NUR ---
RETURNED IFEANYI (SISTER; [phone]) CALL TO PROVIDE UPDATES REGARDING PT STATUS. ALL QUESTIONS AND CONCERNS ANSWERED AT THIS TIME.
--- NOTE | 2020-05-19 21:10 | NUR ---
RT AT BEDSIDE FOR BREATHING TREATMENT.
[2020-05-19 21:16] VITALS: BP 129/79
--- NOTE | 2020-05-20 01:08 | NUR ---
PT RESTING COMFORTABLY WITH EYES CLOSED, EASILY AROUSABLE. NO ACUTE DISTRESS NOTED. PT BREATHING E/U WITH SA02 OF 100%. PT DENIES SOB OR RESP DISTRESS. ALL NEEDS MET. CALL LIGHT WITHIN REACH. BED IN LOWEST POSITION. SIDE RAILS X2 UP. DROPLET+CONTACT PRECAUTIONS MAINTAINED. WILL CONTINUE TO MONITOR.
--- NOTE | 2020-05-20 04:43 | NUR ---
PT RESTING COMFORTABLY IN BED WITH EYES CLOSED, EASILY AROUSABLE. PT DENIES ANY SOB OR RESP DISTRESS. PT SAO2 100%. ALL NEEDS MET. WILL CONTINUE TO MONITOR.
[2020-05-20 06:19] VITALS: BP 127/78
--- NOTE | 2020-05-20 06:33 | NUR ---
PT RESTED COMFORTABLY WITH EYES CLOSED DURING THE NIGHT, EASILY AROUSABLE. COMFORT AND SAFETY MEASURES MAINTAINED. DROPLET+CONTACT PRECAUTIONS MAINTAINED. PT RBS 78 WITH REG INSULIN COVERAGE THIS MORNING. PROVIDED PT WITH JUICE AND SUGAR. PT DENIES ANY ACUTE DISTRESS. PT BREATHING E/U WITH SAO2 OF 100%. CALL LIGHT WITHIN REACH. BED IN LOWEST POSITION. SIDE RAILS X2 UP. WILL ENDORSE TO DAY SHIFT NURSE.
[2020-05-20 06:41] LABS: PLATELET COUNT 177 x10^3mcL (130-400)
--- NOTE | 2020-05-20 07:08 | NUR ---
ENDORSED CARE TO ADITYA JENKINS AND LUIS JENKINS. ALL QUESTIONS AND CONCERNS ANSWERED.
[2020-05-20 07:13] LABS: BASOPHIL % 0 % (0-2); RED CELL DISTRIBUTION WIDTH 20.7 % (11.5-14.5)
[2020-05-20 07:31] LABS: CALCIUM 8.7 mg/dL (8.5-10.1); CARBON DIOXIDE 32.6 mmol/L (21-32); POTASSIUM SERUM 4.7 mmol/L (3.5-5.1)
[2020-05-20 07:32] LABS: CREATININE SERUM 7.3 mg/dL (0.7-1.3)
--- NOTE | 2020-05-20 07:40 | NUR ---
RECEIVED PT FROM MANAGER MBA NURSE. PT RESTING IN BED, HIGH FOWLERS. A/O X4, SEEMS FATIGUED. L EYE BLINDNESS NOTED. S1 AND S2 NOTED. REGULAR RATE AND RHYTHM. PULSES PALP, NO EDEMA NOTED. SKIN WARM, DRY, INTACT, APPROPRIATE FOR ETHNICITY. LUNG SOUNDS DIM BILATERALLY. ON 40L HIGH-FLOW AND 15 L NRB. BOWEL SOUNDS ACTIVE X4. STOMACH ROUNDED, SOFT, NONTENDER. PT IS ANURIC. ANGELIKA AV SHUNT DRESSING INTACT, BRUIT AND THRILLS PRESENT. GEN WEAKNESS NOTED. SARKIS PICC PATENT, FLUSHES WELL WITH GOOD BLOOD RETURN. PT REPORTS NO PAIN AT THIS TIME. WILL CONTINUE TO MONITOR. BED IN LOWEST POSITION, CALL LIGHT IN REACH.
[2020-05-20 07:58] LABS: C REACTIVE PROTEIN 23.4 mg/dL (<=0.9)
--- NOTE | 2020-05-20 09:00 | NUR ---
RT ITZEL AT BEDSIDE. PER RT ITZEL, NRB CAN BE REMOVED. PT NOW ON HIGH FLOW 40L, SPO2 AT 100% AT THIS TIME. WILL TRY TO TITRATE DOWN HIGH FLOW TODAY. PASSED MEDICATION, PT TOLERATED WELL. SET UP BREAKFAST TRAY. WILL CONTINUE TO MONITOR.
[2020-05-20 09:12] VITALS: BP 155/40
--- NOTE | 2020-05-20 12:24 | NUR ---
PT POSITIONED SINKING IN BED, PULLED PT UP AND CHANGED DIAPER. PT STARTED TO BECOME TACHYPNEIC AND DESAT TO 62%, PLACED PT BACK ON NONREBREATHER 15L AND HIGH FLOW AT 40L, FIO2:100%. CALLED RTALISSON AT BEDSIDE, PT GIVEN BREATHING TREATMENT. PT CALMED, BUT SHORTLY AFTER BECAME TACHYPNEIC AGAIN AND WAS CALLING FOR HELP, RT AND CHARGE NURSE AT BEDSIDE WITH PT. CALLED STEVO CRAFT MADE AWARE OF PT CURRENT STATUS, PER STEVO CRAFT ORDERED ATIVAN 1 MG IVP ONCE AND ATIVAN 1 MG IVP Q8HR PRN FOR ANXIETY. PT POSITIONED IN HIGH FOWLERS, GIVEN ATIVAN. CALLING PT PHONE, PT STATES I DONT WANT TO TALK ON THE PHONE, I DONT WANT TO EAT OR I DONT WANT ANY WATER. PT SITTING UP IN BED, SPO2 IMPROVED TO 93% WILL CONTINUE TO MONITOR. CALL LIGHT IN REACH. BED IN LOWEST POSITION.
[2020-05-20 13:20] LABS: rbc morphology (normal/abnorm) ABNORMAL (NORMAL)
--- NOTE | 2020-05-20 15:31 | NUR ---
PT USED CALL LIGHT AND STATED HE WAS HUNGRY. HELPED FEED PT A PACK OF ARGENIS CRACKERS AND 2 CUPS OF APPLEJUICE SLOWLY. PT TOLERATED FOOD WELL. EDUCATED PT THAT HE CAN ONLY EAT A LITTLE BIT RIGHT NOW SO HIS OXYGEN DOES NOT DROP. PT AGREED. WILL CONTINUE TO MONITOR.
[2020-05-20 16:30] VITALS: BP 105/40
--- NOTE | 2020-05-20 16:50 | NUR ---
ADMINISTERED INSULIN PER SLIDING SCALE. PT SHOWS NO SIGNS OF RESPIRATORY DISTRESS AT THIS TIME. WILL CONTINUE TO MONITOR.
--- NOTE | 2020-05-20 17:47 | NUR ---
SPOKE WITH [facility]INSON TELEPHONE MAINTAINER, MADE AWARE DR. FALCON ORDERED DIALYSIS FOR TOMORROW.
--- NOTE | 2020-05-20 19:33 | NUR ---
RECIEVED PT FROM AM NURSE. PT IN BED RESTING. PT IN ISOLATION PRECAUTIONS COVID POSITIVE. PT IN ROOM NEAR NURSES STATION. PT ON HIGH FLOW OXYGEN 40L. WILL MONITOR OXYGEN SATURATION. CALL LIGHT IN REACH, WILL FOLLOW UP WITH ASSESSMENT.
[2020-05-20 20:02] VITALS: BP 132/40
--- NOTE | 2020-05-20 21:26 | NUR ---
PT LAYING IN BED. PT TOLERATED MEDS WELL. DENIES SOB AT THIS TIME. PT ON HIGH FLOW OXYGEN AT 40L FIO2 90%. PT SATURATING 98%. PT SALINE LOCKED, PICC LINE TO SARKIS PATENT. PT HAS NO CONCERNS AT THIS TIME. WILL CONTINUE TO MONITOR. CALL LIGHT IN REACH.
--- NOTE | 2020-05-21 04:18 | NUR ---
PT DESATTING TO 75%, ENTERED PTS ROOM AND REPOSITIONED IN BED AND REPLACED O2 SENSOR ON EAR. PT WAS SCREAMING AND PANICKING BEFORE I ENTERED THE ROOM. PT IS NOW CALM AND TAKING DEEP BREATHS INSTRUCTED. RT CALLED TO COME ASSESS PT. PER MANNY RT, WILL BE UP SHORTLY. PTS O2 SAT RIGHT NOW, 90%.
[2020-05-21 05:44] VITALS: BP 144/60
--- NOTE | 2020-05-21 06:49 | NUR ---
PT SLEEPING IN BED. PT SLEPT IN INTERVALS THROUGHOUT THE NIGHT. RT WENT IN AND WEANED PTS FI02 DOWN TO 80%. PT SATTING WELL AT 95%. PT COMFORTABLE IN BED, CALL LIGHT IN REACH. WILL ENDORSE CARE TO AM RN.
[2020-05-21 07:16] LABS: PLATELET COUNT 137 x10^3mcL (130-400)
[2020-05-21 07:26] LABS: RED CELL DISTRIBUTION WIDTH 20.4 % (11.5-14.5)
--- NOTE | 2020-05-21 07:26 | NUR ---
RECEIVED PT FROM SHEET MANAGER RN. AOX4 ABLE TO MAKE NEEDS KNOWN. L EYE BLINDESS NOTED. DENIES SILVERMAN/DIZZINESS. TELE 15 NSR W/ DEPRESSED T WAVE. DIMINISHED LUNG SOUNDS, ON 40 HIGH FLOW, FI02 AT 80%, DENIES SOB. ABDOMEN SOFT/FLAT, BOWEL SOUNDS ACTIVE, DENIES N/V/D, NO C/O PAIN AT THIS TIME. PT IS WC BOUND, GENERALIZED WEAKNESS, ENCOURAGING PT TO USE CALL LIGHT WHEN IN NEED OF ASSISTANCE. SKIN INTACT. PREVIOUS REPORT OF ANXIETY, WILL MEDICATE PRN. PICC LINE TO SARKIS IN PLACE. CALL LIGHT IN REACH, WILL CONTINUE TO MONITOR.
--- NOTE | 2020-05-21 07:33 | NUR ---
CRITICAL LAB VALUE WBC 24.2 REPORTED TO INSECTICIDE MAKER
[2020-05-21 07:34] LABS: CALCIUM 8.3 mg/dL (8.5-10.1); CARBON DIOXIDE 24.6 mmol/L (21-32); POTASSIUM SERUM 5.2 mmol/L (3.5-5.1)
[2020-05-21 07:35] LABS: CREATININE SERUM 8.4 mg/dL (0.7-1.3)
[2020-05-21 08:22] VITALS: BP 156/41
[2020-05-21 08:27] LABS: C REACTIVE PROTEIN 23.5 mg/dL (<=0.9)
--- NOTE | 2020-05-21 11:09 | NUR ---
Follow-up Nutrition Assessment Dx: viral PNA, COVID r/o Chronic renal failure PMHx: DM, Stroke, ESRD on HD (MWF), HTN Labs: (05/21) Na 136, K 5.2, Glu 126 H, BUN 122, Cr 8.4, H/H 9.4/29, Phos 5.3 on 05/16/20 Meds: Ativan, Colace, Decadron, D50%, Humulin R, Hydralazine, Lantus, Levaquin, Lipitor, Norvasc, Procrit, Ventolin, Zofran Diet: CCHO, K2, Pro 100g, low phosphorus PO Intake: Pt continues with PO intakes of 30-50%. Weights: (05/18) 70.931kg Edema: No edema noted Last BM: 05/20/20 Skin: skin dry and intact Dany: [address] (05/18): Per progress note (05/17), pt remained on 15L oxygen mask, no new event, HD on 05/17. Per pt's primary RN, pt did not eat too much of food, and this morning, pt had approximately 40% of his food. RN also mentioned that low appetite could be caused by SOB when oxygen mask was taken off. Additionally, RN called pt via intercom, and pt reported that he had been drinking his Nepro. RDN Note (05/21): RDN is well-known this RDN due to Pt currently dialyzes at [facility] where this RDN works full-time. Pt receives ongoing renal diet education. Pt was also provided renal diet education during current stay by other RDN. Per RN, no GI distress this time. Skin intact. Per physician progress note, Pt continues to be on 15 LPM via NRB and 15 LPM oximizer, continue to encourage Pt to prone position; Pt unable to tolerate, plan to continue O2 supplement, monitoring of HgB levels, prognosis is guarded, HD per nephrology. Estimated Nutritional Needs Based on ideal body weight (65kg) Energy: 6097-1646 kcal/day (30-35 kcal/kg for ESRD on HD) Protein: 78-91 g/day (1.2-1.4 g/kg for ESRD on HD) Fluid: 7668-2966 mL/day (1 mL/kcal) Nutrition Diagnosis: (ongoing) 1. Increased energy and protein needs r/t increased energy and protein expenditure a/e/b pt has ESRD on HD. (ongoing) 2. Altered nutrition related lab value r/t endocrine and renal dysfunction a/e/b Glu 126 H, BUN 122, Cr 8.4, H/H 9.4/29 on 05/20/20 & Phos 5.3 on 05/16/20 Intervention 1. Continue CCHO, K 2, protein 100g, Low phosphorus 2. Recommend Nepro BID to aid PO intake. It will provide 850kcal and 38.2g protein. Monitor/Evaluate Goal: PO intake at least 75% of estimated needs (not met, ongoing) Monitor: PO intake, Labs, GI function, Body weight, ONS intake F/U in 3-5 days as moderate risk 05/24-
--- NOTE | 2020-05-21 11:09 | NUR ---
Intervention 1. Continue CCHO, K 2, protein 100g, Low phosphorus 2. Recommend Nepro BID to aid PO intake. It will provide 850kcal and 38.2g protein.
[2020-05-21 12:49] LABS: BAND NEUTROPHIL 1 % (0-10); MONOCYTE 6 % (0-7); SEGMENTED NEUTROPHILS 89 % (37-75); rbc morphology (normal/abnorm) ABNORMAL (NORMAL)
[2020-05-21 12:50] LABS: PLATELET MORPHOLOGY LARGE PLATELET SEEN
--- NOTE | 2020-05-21 16:22 | NUR ---
PT STARTED ON HD AND BECAME ANXIOUS, 02 SAT DROPPING TO MID 70'S. PT WAS REASSURED AND PLACED BACK ON 100 FI02, NRB MASK PLACED BACK ON AT 15L. CURRENT BP 136/66 (88) O2 RANGE 90-94%. PT STATING "I CAN'T ANYMORE." PT WAS EDUCATED THAT HIS ANXIETY OCCURS PRIOR TO HD. PT NEEDS CONSTANT REASSURANCE DURING THIS TIME, HE IS AWARE THAT HIS O2 IS DOING OK.
--- NOTE | 2020-05-21 18:44 | NUR ---
AT 1719, DIALYSIS ENDED, PT WAS NOTED TO HAVE AGONAL BREATHING. RT AT BEDSIDE 1720 RAPID RESPONSE CALLED, PT STARTED ON MANUAL VENTILATION 133/49 (77) 1725 BS CHECK AT 165, INGUINAL PULSE PALPABLE, WEAK, BP 130/70 1730 20 OF ETOMIDATE AND 100 ALISHA PUSHED, 02 SAT 90%, INTUBATED AT 24CM, SIZE 7.5. BP 100/77(82), HR 99 1732 PT PLACED ON VENT 1750 TRANSFER TO ICU 1840 REPORT GIVEN TO ANGELA JENKINS
[2020-05-21 19:17] LABS: PLATELET COUNT 192 x10^3mcL (130-400)
[2020-05-21 19:21] LABS: RED CELL DISTRIBUTION WIDTH 20.6 % (11.5-14.5)
[2020-05-21 19:27] LABS: BILIRUBIN TOTAL 1.02 mg/dL (0.20-1.00); CARBON DIOXIDE 25.9 mmol/L (21-32); MAGNESIUM 2.6 mg/dL (1.8-2.4); POTASSIUM SERUM 4.5 mmol/L (3.5-5.1)
[2020-05-21 19:33] LABS: BAND NEUTROPHIL 3 % (0-10); BASOPHIL 0 % (0-2); MONOCYTE 4 % (0-7); SEGMENTED NEUTROPHILS 87 % (37-75)
[2020-05-21 19:35] VITALS: BP 116/29
[2020-05-21 19:35] LABS: CREATININE SERUM 6.1 mg/dL (0.7-1.3)
[2020-05-21 19:36] LABS: rbc morphology (normal/abnorm) ABNORMAL (NORMAL); tear drop cell (dacryocyte) 1+
[2020-05-21 19:37] LABS: PLATELET MORPHOLOGY PLATELETS NORMAL
[2020-05-21 20:10] LABS: PHOSPHOROUS 12.4 mg/dL (2.5-4.9)
--- NOTE | 2020-05-21 20:23 | NUR ---
DR. QUARLES RESIDENT MD TAKING CARE OF THIS PATIENT SPEAKIGN WITH DAUGHTER JANUARY VIA TELEPHONE, UPDATING HER ON PLAN OF CARE AT THIS TIME AND PATIENTS POOR PROGNOSIS.
--- NOTE | 2020-05-21 20:31 | NUR ---
DR. GARDUNO CONTACTED AT THIS TIME RESIDENT MD, NOTIFIED HIM OF PTS MAP OF 39, WILL ORDER VASOPRESSIN GTT.
--- NOTE | 2020-05-21 21:09 | NUR ---
DIANE BLACKWELL CALLED AT THIS TIME, SEE CODE BLUE SHEET.
--- NOTE | 2020-05-21 21:41 | NUR ---
DIANE BLACKWELL CALLED AT THIS TIME, PT HEART RATE 50'S, PEA, NO PALPABLE PULSES, NO DOPPLER PULSES PRESENT, SEE CODE BLUE SHEET FOR MORE DETAILS.
--- NOTE | 2020-05-21 21:46 | NUR ---
TIME OF PRONOUNCED BY DR. PATEL
--- NOTE | 2020-05-21 22:12 | NUR ---
[facility] CONTACTED AT THIS TIME PER ROSIE CARPENTRY FOREMAN FROM [facility], PT IS NOT A CANDIDATE AT THIS TIME. REFERENCE #[id number]
--- NOTE | 2020-05-21 22:20 | NUR ---
[facility] [employer]OP[employer] MANAGER [employer] CONTACTED AT THIS TIME, SPOKE WITH JUANCHO. PER JUANCHO MARKET DEVELOPMENT MANAGER WILL CALL BACK.
--- NOTE | 2020-05-21 22:57 | NUR ---
SPOKE WITH DONTRELL, PT'S VIA TELEPHONE. PER DONTRELL SHE WILL LIQUOR INSPECTOR PT'S BELONGINGS, WHEEL CHAIR AND CLOTHES/SHOES TOMORROW. SHAREPOINT WEB DEVELOPER MADE AWARE.
--- NOTE | 2020-05-21 23:02 | NUR ---
PER ROSSY FROM [employer] FABRICATION SUPERVISOR OFFICE, RELEASE THE BODY TO [place] AT THIS TIME.
--- NOTE | 2020-05-21 23:02 | NUR ---
SPOKE WITH ROSSY LUGO FROM [employer] OFFICE, GAVE HIM INFORMATION ON PT'S . PER ROSSY NO CASE NUMBER AT THIS TIME AND MARKED REVIEWED.
--- NOTE | 2020-05-22 03:09 | NUR ---
PT TAKEN TO [place] BY SECURITY AT THIS TIME, ALL BELONGINGS SENT WITH BODY, WHEEL CHAIR WELL.
== END 2020-05-22 03:22 | disposition expired | DRG 720 ==
LOC: ED 16:49 → DU 19:36 → IC 05-21 17:49
PROVIDERS: Family Medicine; Internal Medicine; Specialist; Student in an Organized Health Care Education/Training Program; Urology; ADMIT Internal Medicine; ATTEND Internal Medicine
PROC: 5A1D70Z Performance of Urinary Filtration, Intermittent, Less than 6 Hours Per Day (ICD-10-PCS; principal; 2020-05-05)
PROC: 5A1D70Z Performance of Urinary Filtration, Intermittent, Less than 6 Hours Per Day (ICD-10-PCS; 2020-05-07)
PROC: 5A1D70Z Performance of Urinary Filtration, Intermittent, Less than 6 Hours Per Day (ICD-10-PCS; 2020-05-10)
PROC: 5A1D70Z Performance of Urinary Filtration, Intermittent, Less than 6 Hours Per Day (ICD-10-PCS; 2020-05-11)
PROC: 5A1D70Z Performance of Urinary Filtration, Intermittent, Less than 6 Hours Per Day (ICD-10-PCS; 2020-05-13)
PROC: 5A1D70Z Performance of Urinary Filtration, Intermittent, Less than 6 Hours Per Day (ICD-10-PCS; 2020-05-15)
PROC: 30233K1 Transfusion of Nonautologous Frozen Plasma into Peripheral Vein, Percutaneous Approach (ICD-10-PCS; 2020-05-15)
PROC: 30233N1 Transfusion of Nonautologous Red Blood Cells into Peripheral Vein, Percutaneous Approach (ICD-10-PCS; 2020-05-16)
PROC: 5A1D70Z Performance of Urinary Filtration, Intermittent, Less than 6 Hours Per Day (ICD-10-PCS; 2020-05-17)
PROC: 5A1D70Z Performance of Urinary Filtration, Intermittent, Less than 6 Hours Per Day (ICD-10-PCS; 2020-05-21)
PROC: 5A1935Z Respiratory Ventilation, Less than 24 Consecutive Hours (ICD-10-PCS; 2020-05-21)
PROC: 02HV33Z Insertion of Infusion Device into Superior Vena Cava, Percutaneous Approach (ICD-10-PCS; 2020-05-21)
PROC: B548ZZA Ultrasonography of Superior Vena Cava, Guidance (ICD-10-PCS; 2020-05-21)
PROC: 0BH17EZ Insertion of Endotracheal Airway into Trachea, Via Natural or Artificial Opening (ICD-10-PCS; 2020-05-21)
DX: A41.9 Sepsis, unspecified organism (principal); U07.1 COVID-19; I21.4 Non-ST elevation (NSTEMI) myocardial infarction; J96.01 Acute respiratory failure with hypoxia; N17.9 Acute kidney failure, unspecified; E11.22 Type 2 diabetes mellitus with diabetic chronic kidney disease; D62 Acute posthemorrhagic anemia; I12.0 Hypertensive chronic kidney disease with stage 5 chronic kidney disease or end stage renal disease; I46.9 Cardiac arrest, cause unspecified; N18.6 End stage renal disease; Z99.2 Dependence on renal dialysis; E87.5 Hyperkalemia; N40.0 Benign prostatic hyperplasia without lower urinary tract symptoms; E87.1 Hypo-osmolality and hyponatremia; D63.1 Anemia in chronic kidney disease; Z86.73 Personal history of transient ischemic attack (TIA), and cerebral infarction without residual deficits
CPT/HCPCS: 31500; 36600; 82962; 83880; 87046; 87046-59; 87804; 97110-GP; 97116-GP; 97530-GP; C1769; C9113; G0378; J0360; J0456; J0696; J0885-EC; J1100; J1265; J1642; J1644; J1815; J1956; J2060; J2250; J2370; J2405; J2543; J3010; J3370; J3490; J3535; J7030; J7050; J7060; P9016; Q0092; U0003-CS